=== PATIENT | female | born 1955 | race Caucasian/White ===

== ENCOUNTER 2018-11-01 09:56 | Inpatient (IN) ==
--- NOTE | 2018-10-16 08:21 | History & Physical Report ---
Date of Service October 16, 2018 Date of Surgery: 11-01-18 Assessment & Plan (1) Osteoarthritis of left knee: Risks and benefits of procedure discussed in detail today, patient would like to proceed with a Left total knee replacement @ [facility] with dr alamo on as scheduled. will obtain medical clearance prior to surgery as well as obtain PATs at [facility]. Will place on ASA 81mg po bid x 1 month post op, f/u 2 weeks post op for routine post-operative care and xray, sooner if having any problems. Patients son-in-law is a physical therapist and will work with her postop, he is a PT for [employer] [facility] [place] History of Present Illness Chief Complaint: Left knee pain Primary Care Provider: Horacio Espinosa Ms Hernández is a 62 year old female who is here for a follow up of left knee pain , presents for pre-op evaluation prior to left total knee replacement by dr alamo at [facility] on 11-01-18. She states that the symptoms have been chronic non- traumatic and occur intermittently. Currently the patient states that the symptoms are moderate-severe. The pain is described as discomforting and sharp. The symptoms occur intermittently. The patient is experiencing pain most of her pain over her lateral compartment and anterior knee joint. She rates her worst pain as 8/10, currently 5/10. The symptoms are aggravated by ascending stairs, descending stairs, daily activities, sleeping on the affected side, walking and weight bearing. Ofelia states that the symptoms are relieved by no specific activity. In addition to left knee pain the patient is also experiencing weakness. Pertinent negatives include fever and erythema. Prior NSAIDs include ibuprofen. Patient has had viscosupplementation injections with no relief, most recently underwent Supartz series of 3 in the fall. Allergies Allergy/AdvReac Type Severity Reaction Status Date / Time codeine Allergy Rash Verified 10/13/18 10:12 gentamicin Allergy Verified 10/13/18 10:38 Penicillins Allergy Rash Verified 10/13/18 10:12 Home Medications Home Medications Medication Instructions Recorded Confirmed Type amitriptyline 20 mg PO HS 10/13/18 10/13/18 History calcium carbonate [Calcium 600] 600 mg PO QAM 10/13/18 10/13/18 History clonazepam [Klonopin] 0.5 mg PO HS 10/13/18 10/13/18 History fluticasone [Flovent HFA] 2 puff INHALATION BID 10/13/18 10/13/18 History ibandronate [Boniva] 1 dose PO MONTHLY 10/13/18 10/13/18 History mepolizumab [Nucala] 1 dose SUBCUT MONTHLY 10/13/18 10/13/18 History potassium chloride 20 meq PO BID 10/13/18 10/13/18 History riboflavin (vitamin B2) 100 mg PO QAM 10/13/18 10/13/18 History zafirlukast [Accolate] 20 mg PO Q12H 10/13/18 10/13/18 History Past Med/Surg History Medical History Asthma HAS NOT USED PRN INH SINCE BEGINNING NUCALA INJECTION (BEGAN 1.5 YEARS AGO) Atrial fibrillation S/P SUCCESSFUL ABLATION 2010 - [facility] - RELEASED FROM CARDIO Downs esophagus Chronic obstructive pulmonary disease Fusion of lumbar spine Gentamicin ototoxicity Hearing deficit Hx of intestinal obstruction IBS (irritable bowel syndrome) Migraine Osteoarthritis Ovarian cyst Premature osteoporosis Spinal stenosis Tinnitus Surgical History H/O sinus surgery History of anesthesia reaction SLOW TO WAKE History of appendectomy History of bowel resection History of bronchoscopy History of bunionectomy History of cholecystectomy History of colonoscopy History of esophagogastroduodenoscopy (EGD) History of fundoplication History of partial hysterectomy History of tonsillectomy History of tooth extraction Hx of LASIK Nausea and vomiting after administration of anesthetic agent S/p bilateral myringotomy with tube placement Family History Mother Family history of reaction to anesthesia PONV Father Family history of diabetes mellitus Social History Current Living Situation: Spouse Other Information That Helps Us Care for You: No Feels Safe at Home: Yes Safety Concerns: Feels Safe At This Time Smoking Status: Never smoker Do You Dip or Chew Tobacco: No Second Hand Exposure: No Hx Alcohol Use: No Hx Substance Use: No Beliefs That Will Affect Care: Rastafarian Rastafarian Beliefs: QUAKER Preferred Language: Kazakh Communication Ability: Effective Loading Shovel Oiler Required: No Review of Systems All systems reviewed & are unremarkable except as noted in HPI & below Constitutional: no fever, no chills and no sweats Respiratory: no cough, no dyspnea and no hemoptysis Cardiovascular: no chest pain, no dyspnea and no orthopnea Musculoskeletal: as per Subjective / HPI Integumentary: no rash Endocrine: no fatigue Hematologic / Lymphatic: no easy bleeding and no easy bruising Physical Exam 2 Vital Signs (Past 24 Hours): Ht: 5ft 6in Wt: 59.9Kg BP: 112/74 Pulse: 90 O2%: 94% Constitutional: WD/WN, vitals as above no acute distress Respiratory: normal respiratory effort, lungs clear to auscultation no respiratory distress, no labored breathing and does not use accessory muscles Cardiovascular: RRR, no murmur, no edema Heart Sounds: no murmur Gastrointestinal (Abdomen): normal bowel sounds, soft, nontender, no hepatosplenomegaly Percussion/Palpation: abdomen nontender and no guarding Musculoskeletal: Left Knee Physical Exam Ofelia ambulates with a limp, overall presents with neutral alignment, there is no erythema warmth or ecchymosis noted. +2 effusion, diffuse tenderness to the knee which is greatest over her lateral compartment. negative patellar apprehension, mild crepitation with motion. Her knee is ligamentously stable, rangel/anterior and posterior drawer testing negative, knee stable with valgus and varus stress. good quad tone, straight leg raise without lag. exhibits pain with end range active ROM, active ROM 0/3/115, passive ROM 0/3/120. Lower Extremity Strength normal. Lower Extremity Neuro-vascular is normal Skin: no rashes, warm and dry no rashes Results & Data Diagnostic Findings 4 views of her left knee including AP, flexion, lateral and sunrise showing complete loss of lateral compartment with bone on bone changes, including subchondral sclerosis and osteophyte formation. mild narrowing of her patellofemoral joint, no acute bony pathology noted, no loose bodies.
--- NOTE | 2018-10-16 09:36 | PAT Medication Instructions ---
Medication Instructions Date of Service October 16, 2018 Home Medications amitriptyline 20 mg PO HS calcium carbonate [Calcium 600] 600 mg PO QAM clonazepam [Klonopin] 0.5 mg PO HS fluticasone [Flovent HFA] 2 puff INHALATION BID ibandronate [Boniva] 1 dose PO MONTHLY mepolizumab [Nucala] 1 dose SUBCUT MONTHLY potassium chloride 20 meq PO BID riboflavin (vitamin B2) 100 mg PO QAM zafirlukast [Accolate] 20 mg PO Q12H Continue as directed ibandronate [Boniva] 1 dose PO MONTHLY mepolizumab [Nucala] 1 dose SUBCUT MONTHLY DO NOT take the morning of surgery calcium carbonate [Calcium 600] 600 mg PO QAM potassium chloride 20 meq PO BID riboflavin (vitamin B2) 100 mg PO QAM zafirlukast [Accolate] 20 mg PO Q12H Take morning of surgery OTHERWISE NOTHING TO EAT OR DRINK AFTER MIDNIGHT: fluticasone [Flovent HFA] 2 puff INHALATION BID Take evening before surgery amitriptyline 20 mg PO HS clonazepam [Klonopin] 0.5 mg PO HS fluticasone [Flovent HFA] 2 puff INHALATION BID potassium chloride 20 meq PO BID zafirlukast [Accolate] 20 mg PO Q12H Other Notes If you have any questions please call us at [phone] or [phone] or [phone] or [phone]
--- NOTE | 2018-10-16 10:28 | Anesthesiology Consultation ---
Date of Service October 16, 2018 Assessment & Plan (1) Encounter for pre-operative examination: Plan: PCP CLEARANCE 10/18: "Pt cleared for L knee surgery." Chart Review Chart Review: Acceptable Risk for Surgery and Patient seen in Pre Admission Testing Teaching & Discussion Instructed NPO after midnight before surgery, except medications with 15 cc of water. Medication instructions provided according to the PAT guidelines. History Surgery Operation Date: 11/01/18 10:20 Proposed Procedures p Left Total Knee Arthroplasty - Keith Thomas DO Height/Weight Height: 5 ft 6 in Weight: 61.4 kg Allergies Allergy/AdvReac Type Severity Reaction Status Date / Time codeine Allergy Rash Verified 10/13/18 10:12 gentamicin Allergy Verified 10/13/18 10:38 Penicillins Allergy Rash Verified 10/13/18 10:12 Medications Home Medications Medication Instructions Recorded Confirmed Last Taken amitriptyline 20 mg PO HS 10/13/18 10/13/18 Unknown calcium carbonate [Calcium 600] 600 mg PO QAM 10/13/18 10/13/18 Unknown clonazepam [Klonopin] 0.5 mg PO HS 10/13/18 10/13/18 Unknown fluticasone [Flovent HFA] 2 puff INHALATION BID 10/13/18 10/13/18 Unknown ibandronate [Boniva] 1 dose PO MONTHLY 10/13/18 10/13/18 Unknown mepolizumab [Nucala] 1 dose SUBCUT MONTHLY 10/13/18 10/13/18 Unknown potassium chloride 20 meq PO BID 10/13/18 10/13/18 Unknown riboflavin (vitamin B2) 100 mg PO QAM 10/13/18 10/13/18 Unknown zafirlukast [Accolate] 20 mg PO Q12H 10/13/18 10/13/18 Unknown Past Medical History Medical History Asthma HAS NOT USED PRN INH SINCE BEGINNING NUCALA INJECTION (1.5 YEARS AGO) Atrial fibrillation S/P SUCCESSFUL ABLATION 2010 - [facility] - RELEASED FROM CARDIO Downs esophagus Chronic obstructive pulmonary disease Gentamicin ototoxicity Hearing deficit Hx of intestinal obstruction IBS (irritable bowel syndrome) Migraine Osteoarthritis Ovarian cyst Premature osteoporosis Spinal stenosis Tinnitus Past Family History Family History Mother Family history of reaction to anesthesia PONV Father Family history of diabetes mellitus Past Surgical History Surgical History Fusion of lumbar spine H/O sinus surgery History of appendectomy History of bowel resection History of bronchoscopy History of bunionectomy History of cholecystectomy History of colonoscopy History of esophagogastroduodenoscopy (EGD) History of fundoplication History of partial hysterectomy History of tonsillectomy History of tooth extraction Hx of LASIK Nausea and vomiting after administration of anesthetic agent S/p bilateral myringotomy with tube placement Past Anesthesia History No Hx of Anesthesia Complications (OTHER THAN PONV) and No Family Hx of Anesthesia Complications History of PONV Yes Motion Sickness Screening History of Motion Sickness: Yes Social History Smoking Status: Never smoker Do You Dip or Chew Tobacco: No Hx Alcohol Use: No Hx Substance Use: No substance use type: does not use Exercise / Class Metabolic Activity II 4-5 Yardwork/Stairs/Walk up hill (no CP or SOB with stairs) Review of Systems Pt denies any recent chest pain, shortness of breath, palpitations, cough, fever or URI. Physical Exam Vital Signs BP: 132/81 (pt reports this is high for her) P: 81bpm SPO2: 98% RA T: 97.6 F R: 12 ENMT Mouth: + dental restorations (2 crowns); no chipped teeth and no loose teeth Thyromental Distance: > or= 3.5 Finger Breadths (4) Mallampati Class: I Neck normal visual inspection; neck extension not limited Respiratory normal respiratory effort Auscultation: + diminished lung sounds (L lower lung field), + crackles (mild inspiratory R lung base) and + bronchovesicular breath sounds (B/L); no rhonchi and no wheezes Cardiovascular Rate/Rhythm: regular rate and regular rhythm Heart Sounds: no murmur Vessels: no carotid bruit Extremities: no edema Testing Electrocardiogram Date: 10/16/18 Findings: + NSR @ (75) Chest X-Ray Date: 10/16/18 Findings: + NAD Laboratory Results 10/16/18 10:56 10/16/18 10:56 Blood Type O Positive 10/16/18 10:56 Antibody Screen NEGATIVE 10/16/18 10:56 PT 9.9 Seconds (9.0-12.0) 10/16/18 10:56 INR 1.0 (0.9-1.1) 10/16/18 10:56 APTT 25.1 Seconds (21.0-31.0) 10/16/18 10:56 Hemoglobin A1c 5.8 % (4.5-5.6) H 10/16/18 10:56 Urine Color Yellow 10/16/18 Unknown Urine Appearance Clear (Clear) 10/16/18 Unknown Urine pH 8.5 (4.5-7.5) H 10/16/18 Unknown Ur Specific [place] 1.013 (1.000-1.030) 10/16/18 Unknown Urine Protein Negative (Negative) 10/16/18 Unknown Urine Glucose (UA) Negative (Negative) 10/16/18 Unknown Urine Ketones Negative (Negative) 10/16/18 Unknown Urine Nitrite Negative (Negative) 10/16/18 Unknown Ur Leukocyte Esterase Trace (Negative) H 10/16/18 Unknown Urine WBC (Auto) 1-5 /hpf (0-5) 10/16/18 Unknown Urine RBC (Auto) 0-4 /hpf (0-4) 10/16/18 Unknown U Hyaline Cast (Auto) 1-5 /lpf (0-5) 10/16/18 Unknown U Epithel Cells (Auto) >30 /lpf (0-5) H 10/16/18 Unknown Urine Bacteria (Auto) Negative (Negative) 10/16/18 Unknown
[2018-10-16 11:35] LABS: Basophils # (auto) 0.01 K/uL (0-0.2); Basophils % (auto) 0.2 %; Eosinophils # (auto) 0.09 K/uL (0-0.5); Eosinophils % (auto) 1.6 %; Hematocrit (blood only) 40.2 % (37-47); Hemoglobin 13.1 g/dL (12.0-16.0); Immature Granulocytes # (auto) 0.02 K/uL (0.00-0.02); Immature Granulocytes % (auto) 0.4 %; Lymphocytes % (auto) 25.2 %; Mean Corpuscular Hgb Conc 32.6 g/dL (32-36); Mean Corpuscular Volume 97.3 fL (80-100); Mean Platelet Volume 9.3 fL (7.4-10.4); Monocytes # (auto) 0.65 K/uL (0.11-0.59); Monocytes % (auto) 11.7 %; Neutrophils # (auto) 3.38 K/uL (1.4-6.5); Neutrophils % (auto) 60.9 %; Platelet Count 295 K/uL (130-400); RDW Coefficient of Variation 13.2 % (11.5-14.5); RDW Standard Deviation 46.5 fL (36.4-46.3); Red Blood Count 4.13 M/uL (4.2-5.4); White Blood Count 5.55 K/uL (4.8-10.8)
[2018-10-16 11:40] LABS: Appearance Urine Clear (Clear); Bacteria Urine Automated Negative (Negative); Bilirubin Urine Negative (Negative); Color Urine Yellow; Epithelial Cell Urine Auto >30 /lpf (0-5); Glucose Urine UA Negative (Negative); Ketones Urine Negative (Negative); Leukocyte Esterase Urine Trace (Negative); Nitrite Urine Negative (Negative); Protein Urine Negative (Negative); Specific Gravity Urine 1.013 (1.000-1.030); Urobilinogen Urine Negative (Negative); pH Urine 8.5 (4.5-7.5)
--- NOTE | 2018-10-16 11:41 | XRay Report ---
XR chest Pre-admission PA/Lat CLINICAL HISTORY: 62 years-old Female presenting with preoperative assessment. TECHNIQUE: PA and lateral views of the chest were obtained. COMPARISON: None. FINDINGS: Cardiomediastinal silhouette normal. Lungs and pleural spaces clear. Incidental note made of an azygo s fissure. Partially visualized lumbar fusion hardware. Cholecystectomy clips noted. IMPRESSION: 1. No acute cardiopulmonary disease. Electronically signed by: Alfred Gibson M.D. 10/16/2018 11:40 AM
[2018-10-16 11:43] LABS: Partial Thromboplastin Time 25.1 Seconds (21.0-31.0); Prothrombin Time 9.9 Seconds (9.0-12.0)
[2018-10-16 11:44] LABS: Albumin Level 3.5 gm/dl (3.4-5.0); BUN Creatinine Ratio 32.6 (10-20); Calcium 9.1 mg/dl (8.5-10.1); Creatinine Clr Calc Pharmacy 96.7 ml/min; Est GFR (African American) 114.9; Est GFR (Non-African American) 99.1; Potassium 4.4 mmol/L (3.5-5.1)
[2018-10-16 11:46] LABS: Estimated Average Glucose 120 mg/dl
[~2018-11-01 09:56] MED LIST: ACETAMINOPHEN 500 MG TAB PO SCH; BUPIVACAINE 0.5 % 5 MG/1 ML PF 10ML VIAL ONE; CEFAZOLIN 1000MG 1,000 MG/7.5 ML SYR IV SCH; CLINDAMYCIN 600 MG/54 ML BAG IV SCH; CeleBREX 200 MG CAP PO SCH; FAMOTIDINE 20 MG TAB PO SCH; GABAPENTIN 300 MG PO SCH; LR 15ML/HR IV SCH; LR 500ML BOLUS IV SCH; METOCLOPRAMIDE HCL 10 MG TABLET PO SCH; MIDAZOLAM HCL 1 MG/ML 2ML VIAL ONE; ROPIVACAINE 0.5% 5 MG/ML 30 ML VIAL ONE; ROPIVACAINE 0.5% HCL/PF 150 MG, BUPIVACAINE 0.5% MPF 30 ML, EPINEPHrine 30MG/30ML (OR U... INFIL SCH; TRANEXAMIC ACID 1,000 MG **IV Intra-op IV SCH; TRANEXAMIC ACID 1,000 MG **IV Pre-op IV SCH; dexAMETHasone 4 MG TAB PO SCH; fentaNYL citrate 100 MCG/2 ML VIAL ONE
--- NOTE | 2018-11-01 10:49 | History & Physical Bridge Note ---
Date of Service November 01, 2018 History & Physical Bridge Note I have examined the patient, reviewed the History & Physical and in the interval since the performance of the History & Physical I have noted the following changes of clinical significance: no changes noted
[2018-11-01] MEDS ORDERED: POVIDONE-IODINE OP SOLN 30 ML BTL ONE (11:17)
[2018-11-01] MEDS ORDERED: ORTHO JOINT ANESTHETIC ONE (11:17)
[2018-11-01] MEDS ORDERED: BACITRACIN INJ 50,000 UNIT VIAL ONE (11:17)
[2018-11-01] MEDS ORDERED: ePHEDrine sulfate 50 MG/ML AMP IV PRN (11:59)
[2018-11-01] MEDS ORDERED: ONDANSETRON INJ 2 MG/ML 2 ML VIAL IV PRN ×2 (11:59→15:40)
[2018-11-01] MEDS ORDERED: ATROPINE SULFATE 0.1 MG/ML 10ML SYR IV PRN (11:59)
[2018-11-01] MEDS ORDERED: fentaNYL citrate 100 MCG/2 ML VIAL IV PRN (11:59)
[2018-11-01] MEDS ORDERED: LIDOCAINE HCL 2% 2 ML VIAL/AMP(20MG/ML) INFIL ONE (12:58)
[2018-11-01] MEDS ORDERED: PROPOFOL IV EMULSION 10 MG/ML 20 ML VIAL IV ONE (12:58)
--- NOTE | 2018-11-01 13:27 | Operative Report ---
Post Operative Report Pre & Post Diagnosis Operation Date: 11/01/18 12:20 Pre-Op Diagnosis: Left Knee Osteoarthritis Post-Op Diagnosis: Left Knee Osteoarthritis Procedure Operation Date: 11/01/18 12:20 Actual Procedures p Left Total Knee Arthroplasty, Cemented(Left) utilizing journey 2 long block total knee arthroplasty size 5 femur 4 tibia 11 polyethylene 29 oval patella- Keith Thomas DO Surgeon Keith Thomas DO Process Development Manager [place] Estimated Blood Loss 5 Findings Consistent with Post-Op Diagnosis Patient presents with severe end-stage chronic hormonal degenerative joint disease with valgus alignment of approximately 12 degrees left knee she is failed attempts at conservative management times surgery no evidence of osteophytes marginal osteophytes with subchondral sclerosis cystic changes and eburnated [id number] change with a valgus alignment with hyperextension of 5 degrees Specimens Bone and cartilage Drains Medium bore Hemovac Complications none Disposition Accompanied Patient To Recovery: No Disposition: Recovery Room Indications Patient presents for left total knee arthroplasty after failed attempts at conservative management including injections corticosteroid injections Visco supplementation relative rest activity modification bracing she had the above intraoperative findings noted times surgery. Description of Procedure After proper prepping and draping of the left lower extremity anterior midline incision was made over the region of the extensor extensor mechanism after meticulous hemostasis was obtained and maintained in subcutaneous tissues a medial parapatellar incision was made The patella was subluxed lateralward the medial lateral gutter were cleaned from any hypertrophic synovitis and scar tissue of the distal femoral block was placed and the distal femoral osteotomy cut was made subsequently the chamfers anterior and posterior osteotomy cuts were made utilizing the 4-in-1 block the tibia was subsequently subluxed anteriorward medial and ateral meniscal remnants were excised in their entirety remnants of the anterior and posterior cruciate ligaments were excised in their entirety excellent exposure of the proximal tibia was obtained the tibial osteotomy guide was placed on the proximal tibial osteotomy cut was made once again the knee was irrigated with copious amounts of sterile saline solution the patella was subsequently everted lateralward thickened scar tissue around the patella was removed the patella was subsequently cut utilizing a freehand technique and was drilled prepared for final preparation and placement of patella socially flexion-extension gaps were checked and the equal and symmetric trials were placed to the appropriate femoral and tibial trials with poly-spacer being placed for equal flexion and extension gaps and full range of motion including extension to 0 and flexion to 140� the trial components after having been taken to recovery range of motion was subsequently removed meticulous hemostasis was obtained and maintained subsequently a knee block injection of joint cocktail including ropivacaine 0.5% 150 mg. Bupivacaine 0.5 % epinephrine 1-200,030 mL's toradol 30 mg dexamethasone 4 mg ketamine 10 mg clonidine 100 micrograms normal saline solution 30 mg was infiltrated into the soft tissues of the posterior knee medial lateral gutters and periosteal synovium special attention was paid to protect neurovascular structures at all times subsequently trial components having been removed the knee was irrigated with sterile saline solution. debris was removed the proximal tibia was subsequently prepared and was made ready for the placement of the tibial component tibial component was also cemented and tamped into position the femoral component was subsequently placed and cemented in the position the patellar component was subsequently cemented in position because hemostasis once again obtained and maintained wound having been thoroughly irrigated with debridement and debridement lavage was performed as well as a medial parapatellar incision closed with #1 Vicryl in interrupted fashion subcutaneous was closed with #2 Vicryl skin was closed with skin clips. PA-C was necessary for prepping and drapping as well as wound closure of deep fascia Sub cutaneous tissue and skin and was necessary for the case. A sterile compressive dressing was placed patient was taken to recovery in stable condition of report dictated by William I attest to the content of the Intraoperative Record and any orders documented therein. Any exceptions are noted below. I attest to the content of the Intraoperative Record and any orders documented therein. Any exceptions are noted below.
--- NOTE | 2018-11-01 14:21 | XRay Report ---
XR knee LT 2V routine HISTORY: 62 years-old Female Surgical Post Op left knee total joint arthroplasty. History of degener ative joint disease COMPARISON: Left knee radiographs 10/02/2018 TECHNIQUE: 2 views of the left knee FINDINGS: Left knee total joint arthroplasty with patellar resurfacing. Satisfactory alignment without acute fr acture or retained foreign body. Anterior midline skin marilou are noted along with expected postsurg ical soft tissue swelling and deep tissue air with surgical drainage catheter. IMPRESSION: Left knee total joint arthroplasty and patella resurfacing with satisfactory alignment. The above report was generated using voice recognition software. It may contain grammatical, syntax o r spelling errors. Electronically signed by: Tashi Dorsey M.D. 11/01/2018 2:20 PM
--- NOTE | 2018-11-01 15:06 | Anesthesiology Progress Note ---
Date of Service November 01, 2018 Anesthesia Post Procedure Vital Signs Vital Signs: Temp Pulse Pulse Resp BP Pulse Ox 11/01/18 14:55 66 18 120/73 99 11/01/18 14:45 61 18 135/72 99 11/01/18 14:35 37.0 C 63 18 134/72 100 11/01/18 14:25 71 17 137/72 98 11/01/18 14:15 70 16 129/69 98 11/01/18 14:05 36.3 C L 73 17 128/68 97 11/01/18 10:51 36.9 C 80 20 158/79 H 97 Pain Intensity Left Knee: Pain Intensity: 0 Notes Mental Status: alert / awake / arousable and participated in evaluation Patient Amnestic to Procedure: Yes Nausea / Vomiting: adequately controlled Pain: adequately controlled Airway Patency, RR, SpO2: stable & adequate BP & HR: stable & adequate Hydration State: stable & adequate Neuraxial Anesthesia: was administered and sensory block is resolving Anesthetic Complications: no major complications apparent and Pt Satisfied with anesthetic care
[2018-11-01] MEDS ORDERED: MAGNESIUM HYDROXIDE SUSP 30 ML UDC PO PRN (15:40)
[2018-11-01] MEDS ORDERED: BISACODYL 10 MG SUPP PR PRN (15:40)
[2018-11-01] MEDS ORDERED: HYDROmorphone INJ 0.5 MG/0.5 ML SYR IV PRN (15:40)
[2018-11-01] MEDS ORDERED: METOCLOPRAMIDE HCL INJ 5 MG/ML 2 ML VIAL IV PRN (15:40)
[2018-11-01] MEDS ORDERED: NALOXONE HCL 0.4 MG/1 ML VIAL/CARP IV PRN (15:40)
[2018-11-01] MEDS ORDERED: SODIUM CHLORIDE 0.9% 1000ML 1,000 ML IV SCH (16:15)
[2018-11-01] MEDS: FERROUS GLUCONATE 324 MG TAB PO SCH (17:17)
[2018-11-01] MEDS: DOCUSATE SODIUM 100 MG CAP PO SCH (20:15)
[2018-11-01] MEDS: CLINDAMYCIN 600 MG in DEXTROSE 5% 50 ML IV SCH (20:15)
[2018-11-01] MEDS: POTASSIUM CHLORIDE 20 MEQ TABCR PO SCH (20:16)
[2018-11-01] MEDS: SENNA 8.6 MG TAB PO SCH (20:16)
[2018-11-01] MEDS: FLUTICASONE HFA 220 MCG INHALER INH SCH (20:16)
[2018-11-01] MEDS: ASPIRIN 81 MG ECTAB PO SCH (20:17)
[2018-11-01] MEDS: AMITRIPTYLINE HCL 10 MG TAB PO SCH (20:17)
[2018-11-01] MEDS: clonazePAM 0.5 MG TAB PO SCH (20:37)
[2018-11-01] MEDS: ACETAMINOPHEN 500 MG TAB PO SCH (22:29)
[2018-11-02] MEDS: CLINDAMYCIN 600 MG in DEXTROSE 5% 50 ML IV SCH (03:52)
[2018-11-02] MEDS: OXYCODONE HCL IR 5 MG TAB (IMMEDIATE RELEASE) PO PRN ×4 (03:53→20:44)
[2018-11-02] MEDS: ACETAMINOPHEN 500 MG TAB PO SCH ×3 (05:54→23:00)
[2018-11-02 05:56] LABS: Hematocrit (blood only) 35.1 % (37-47); Hemoglobin 11.6 g/dL (12.0-16.0); Mean Corpuscular Volume 95.9 fL (80-100); Mean Platelet Volume 9.2 fL (7.4-10.4); Platelet Count 239 K/uL (130-400); RDW Coefficient of Variation 13.2 % (11.5-14.5); Red Blood Count 3.66 M/uL (4.2-5.4)
[2018-11-02 06:29] LABS: BUN Creatinine Ratio 30.9 (10-20); Calcium 8.4 mg/dl (8.5-10.1); Creatinine Clr Calc Pharmacy 78.2 ml/min; Est GFR (African American) 107.1; Est GFR (Non-African American) 92.4; Potassium 3.9 mmol/L (3.5-5.1)
--- NOTE | 2018-11-02 07:09 | Orthopedic Progress Note ---
Date of Service November 02, 2018 Assessment & Plan (1) Status post total left knee replacement: POD #1 s/p Left TKA pt/ot dvt proph with MARIA LUISA/SCD/ASA plan for d/c home with home health PT with her neighbor is PT and family member, likely on Tuesday. Subjective POD #1 s/p Left TKA Constitutional: no fever, no chills, no sweats and no body aches Respiratory: no cough and no dyspnea Cardiovascular: no chest pain, no dyspnea and no orthopnea Physical Exam 2 Vital Signs (Past 24 Hours): Last Vital Signs Temp 36.6 C 11/02/18 03:12 Pulse 73 11/02/18 03:12 Resp 16 11/02/18 03:12 BP 110/70 11/02/18 03:12 Pulse Ox 94 11/02/18 03:12 Constitutional: WD/WN, vitals as above no acute distress Musculoskeletal: NVDI, able to wiggle toes, ankle up and down no pain, negative mane. dressing CD&I Results & Data Laboratory Results Laboratory Results WBC 15.80 K/uL (4.8-10.8) H 11/02/18 05:28 RBC 3.66 M/uL (4.2-5.4) L 11/02/18 05:28 Hgb 11.6 g/dL (12.0-16.0) L 11/02/18 05:28 Hct 35.1 % (37-47) L 11/02/18 05:28 MCV 95.9 fL (80-100) 11/02/18 05:28 MCH 31.7 pg (25-34) 11/02/18 05:28 MCHC 33.0 g/dL (32-36) 11/02/18 05:28 RDW Std Deviation 46.0 fL (36.4-46.3) 11/02/18 05:28 RDW Coeff of Nalini 13.2 % (11.5-14.5) 11/02/18 05:28 Plt Count 239 K/uL (130-400) 11/02/18 05:28 MPV 9.2 fL (7.4-10.4) 11/02/18 05:28 Immature Gran % (Auto) 0.4 % 10/16/18 10:56 Neut % (Auto) 60.9 % 10/16/18 10:56 Lymph % (Auto) 25.2 % 10/16/18 10:56 Sully % (Auto) 11.7 % 10/16/18 10:56 Eos % (Auto) 1.6 % 10/16/18 10:56 Baso % (Auto) 0.2 % 10/16/18 10:56 Immature Gran # (Auto) 0.02 K/uL (0.00-0.02) 10/16/18 10:56 Neut # (Auto) 3.38 K/uL (1.4-6.5) 10/16/18 10:56 Lymph # (Auto) 1.40 K/uL (1.2-3.4) 10/16/18 10:56 Sully # (Auto) 0.65 K/uL (0.11-0.59) H 10/16/18 10:56 Eos # (Auto) 0.09 K/uL (0-0.5) 10/16/18 10:56 Baso # (Auto) 0.01 K/uL (0-0.2) 10/16/18 10:56 PT 9.9 Seconds (9.0-12.0) 10/16/18 10:56 INR 1.0 (0.9-1.1) 10/16/18 10:56 APTT 25.1 Seconds (21.0-31.0) 10/16/18 10:56 PTT Ratio 1.0 10/16/18 10:56 Sodium 140 mmol/L (136-145) 11/02/18 05:28 Potassium 3.9 mmol/L (3.5-5.1) 11/02/18 05:28 Chloride 109 mmol/L (98-107) H 11/02/18 05:28 Carbon Dioxide 25 mmol/L (21-32) 11/02/18 05:28 Anion Gap 6.0 (3-11) 11/02/18 05:28 BUN 21 mg/dl (7-18) H 11/02/18 05:28 Creatinine 0.68 mg/dl (0.6-1.2) 11/02/18 05:28 Est Cr Clr Drug Dosing 78.2 ml/min 11/02/18 05:28 Est GFR ( Amer) 107.1 11/02/18 05:28 Est GFR (Non-Af Amer) 92.4 11/02/18 05:28 BUN/Creatinine Ratio 30.9 (10-20) H 11/02/18 05:28 Glucose 152 mg/dl (70-99) H 11/02/18 05:28 Estimat Average Glucose 120 mg/dl 10/16/18 10:56 Hemoglobin A1c 5.8 % (4.5-5.6) H 10/16/18 10:56 Calcium 8.4 mg/dl (8.5-10.1) L 11/02/18 05:28 Albumin 3.5 gm/dl (3.4-5.0) 10/16/18 10:56 Urine Color Yellow 10/16/18 Unknown Urine Appearance Clear (Clear) 10/16/18 Unknown Urine pH 8.5 (4.5-7.5) H 10/16/18 Unknown Ur Specific [place] 1.013 (1.000-1.030) 10/16/18 Unknown Urine Protein Negative (Negative) 10/16/18 Unknown Urine Glucose (UA) Negative (Negative) 10/16/18 Unknown Urine Ketones Negative (Negative) 10/16/18 Unknown Urine Blood Negative (Negative) 10/16/18 Unknown Urine Nitrite Negative (Negative) 10/16/18 Unknown Urine Bilirubin Negative (Negative) 10/16/18 Unknown Urine Urobilinogen Negative (Negative) 10/16/18 Unknown Ur Leukocyte Esterase Trace (Negative) H 10/16/18 Unknown Urine WBC (Auto) 1-5 /hpf (0-5) 10/16/18 Unknown Urine RBC (Auto) 0-4 /hpf (0-4) 10/16/18 Unknown U Hyaline Cast (Auto) 1-5 /lpf (0-5) 10/16/18 Unknown U Epithel Cells (Auto) >30 /lpf (0-5) H 10/16/18 Unknown Urine Bacteria (Auto) Negative (Negative) 10/16/18 Unknown Hepatitis C Ab Screen Neg (Neg) 11/01/18 10:24 Blood Type O Positive 10/16/18 10:56 Antibody Screen NEGATIVE 10/16/18 10:56 Vital Signs Temp 36.6 C 11/02/18 03:12 Pulse 73 11/02/18 03:12 Resp 16 11/02/18 03:12 BP 110/70 11/02/18 03:12 Pulse Ox 94 11/02/18 03:12 Intake & Output 11/01/18 11/02/18 11/02/18 18:59 06:59 18:59 Intake Total 2162.833 / 2162.833 358 / 358 Output Total 35 / 35 800 / 800 Balance 2127.833 / 2127.833 -442 / -442 Weight 61.235 kg Intake: IV 1312.833 / 1312.833 108 / 108 Cleocin 600 mg In D5w 50 ml @ 108 / 108 100 mls/hr IV Q8H ZACHARIAH Rx#: [id number] CLEOCIN 600 mg In 54 ml @ 100 53.333 / 53.333 mls/hr IV PREOP ZACHARIAH Rx#: [id number] Lr 1,000 ml @ 15 mls/hr IV . 1149.5 / 1149.5 Q24H ZACHARIAH Rx#:[id number] Cyklokapron 1,000 mg In Sodium 110 / 110 Chloride 100 ml @ 660 mls/hr IV TODAY@0600 ZACHARIAH Rx#:[id number] IV Perioperative 850 / 850 Oral 250 / 250 Output: Urine 550 / 550 Estimated Blood Loss 5 / 5 Drain Output 30 / 30 250 / 250 Left Knee 30 / 30 250 / 250
[2018-11-02] MEDS ORDERED: KETOROLAC TROMETHAMINE 15 MG/ML VIAL IV STA (07:16)
[2018-11-02] MEDS ORDERED: RIBOFLAVIN 100 MG PO SCH (09:00)
[2018-11-02] MEDS: POTASSIUM CHLORIDE 20 MEQ TABCR PO SCH ×2 (09:31→19:59)
[2018-11-02] MEDS: DOCUSATE SODIUM 100 MG CAP PO SCH ×2 (09:31→19:58)
[2018-11-02] MEDS: ASPIRIN 81 MG ECTAB PO SCH ×2 (09:31→19:59)
[2018-11-02] MEDS: MULTIVITAMIN TAB PO SCH (09:31)
[2018-11-02] MEDS: FERROUS GLUCONATE 324 MG TAB PO SCH ×2 (09:32→18:30)
[2018-11-02] MEDS: CALCIUM 600MG + VIT D 400 IU TAB PO SCH (09:32)
[2018-11-02] MEDS: FLUTICASONE HFA 220 MCG INHALER INH SCH ×2 (09:32→19:57)
[2018-11-02] MEDS: ZAFIRLUKAST 20 MG SCH ×2 (11:54→20:00)
[2018-11-02] MEDS: MoRPHine SULFATE 4 MG/ML 1 ML CARP\\VIAL IV PRN ×2 (14:18→23:10)
[2018-11-02] MEDS: AMITRIPTYLINE HCL 10 MG TAB PO SCH (19:59)
[2018-11-02] MEDS: SENNA 8.6 MG TAB PO SCH (20:00)
[2018-11-02] MEDS: clonazePAM 0.5 MG TAB PO SCH (20:44)
[2018-11-03] MEDS: OXYCODONE HCL IR 5 MG TAB (IMMEDIATE RELEASE) PO PRN ×3 (02:46→11:31)
[2018-11-03] MEDS: ACETAMINOPHEN 500 MG TAB PO SCH (05:59)
--- NOTE | 2018-11-03 06:51 | Orthopedic Progress Note ---
Date of Service November 03, 2018 Assessment & Plan (1) Status post total left knee replacement: POD #2 s/p Left TKA pt/ot dvt proph with MARIA LUISA/SCD/ASA plan for d/c home with home health PT, her neighbor is her RADHA and is PT, will do in home for 2 weeks then transition to OPPT Subjective POD #2 s/p Left TKA Constitutional: no fever, no chills and no sweats Respiratory: no cough and no dyspnea Cardiovascular: no chest pain Gastrointestinal: no nausea and no vomiting Musculoskeletal: as per Subjective / HPI Physical Exam 2 Vital Signs (Past 24 Hours): Last Vital Signs Temp 37.0 C 11/02/18 23:02 Pulse 89 11/02/18 23:02 Resp 16 11/02/18 23:02 BP 121/78 11/02/18 23:02 Pulse Ox 98 11/02/18 23:02 Constitutional: WD/WN, vitals as above no acute distress Musculoskeletal: NVDI, calf SNT, negative mane sign. DP palpable, able to wiggle toes/ankle movement without difficulty. silverlon dressing clean dry and intact. expected post-operative bruising noted. Results & Data Laboratory Results Laboratory Results WBC 15.80 K/uL (4.8-10.8) H 11/02/18 05:28 RBC 3.66 M/uL (4.2-5.4) L 11/02/18 05:28 Hgb 11.6 g/dL (12.0-16.0) L 11/02/18 05:28 Hct 35.1 % (37-47) L 11/02/18 05:28 MCV 95.9 fL (80-100) 11/02/18 05:28 MCH 31.7 pg (25-34) 11/02/18 05:28 MCHC 33.0 g/dL (32-36) 11/02/18 05:28 RDW Std Deviation 46.0 fL (36.4-46.3) 11/02/18 05:28 RDW Coeff of Nalini 13.2 % (11.5-14.5) 11/02/18 05:28 Plt Count 239 K/uL (130-400) 11/02/18 05:28 MPV 9.2 fL (7.4-10.4) 11/02/18 05:28 Immature Gran % (Auto) 0.4 % 10/16/18 10:56 Neut % (Auto) 60.9 % 10/16/18 10:56 Lymph % (Auto) 25.2 % 10/16/18 10:56 Villalba % (Auto) 11.7 % 10/16/18 10:56 Eos % (Auto) 1.6 % 10/16/18 10:56 Baso % (Auto) 0.2 % 10/16/18 10:56 Immature Gran # (Auto) 0.02 K/uL (0.00-0.02) 10/16/18 10:56 Neut # (Auto) 3.38 K/uL (1.4-6.5) 10/16/18 10:56 Lymph # (Auto) 1.40 K/uL (1.2-3.4) 10/16/18 10:56 Villalba # (Auto) 0.65 K/uL (0.11-0.59) H 10/16/18 10:56 Eos # (Auto) 0.09 K/uL (0-0.5) 10/16/18 10:56 Baso # (Auto) 0.01 K/uL (0-0.2) 10/16/18 10:56 PT 9.9 Seconds (9.0-12.0) 10/16/18 10:56 INR 1.0 (0.9-1.1) 10/16/18 10:56 APTT 25.1 Seconds (21.0-31.0) 10/16/18 10:56 PTT Ratio 1.0 10/16/18 10:56 Sodium 140 mmol/L (136-145) 11/02/18 05:28 Potassium 3.9 mmol/L (3.5-5.1) 11/02/18 05:28 Chloride 109 mmol/L (98-107) H 11/02/18 05:28 Carbon Dioxide 25 mmol/L (21-32) 11/02/18 05:28 Anion Gap 6.0 (3-11) 11/02/18 05:28 BUN 21 mg/dl (7-18) H 11/02/18 05:28 Creatinine 0.68 mg/dl (0.6-1.2) 11/02/18 05:28 Est Cr Clr Drug Dosing 78.2 ml/min 11/02/18 05:28 Est GFR ( Amer) 107.1 11/02/18 05:28 Est GFR (Non-Af Amer) 92.4 11/02/18 05:28 BUN/Creatinine Ratio 30.9 (10-20) H 11/02/18 05:28 Glucose 152 mg/dl (70-99) H 11/02/18 05:28 Estimat Average Glucose 120 mg/dl 10/16/18 10:56 Hemoglobin A1c 5.8 % (4.5-5.6) H 10/16/18 10:56 Calcium 8.4 mg/dl (8.5-10.1) L 11/02/18 05:28 Albumin 3.5 gm/dl (3.4-5.0) 10/16/18 10:56 Urine Color Yellow 10/16/18 Unknown Urine Appearance Clear (Clear) 10/16/18 Unknown Urine pH 8.5 (4.5-7.5) H 10/16/18 Unknown Ur Specific Joseph 1.013 (1.000-1.030) 10/16/18 Unknown Urine Protein Negative (Negative) 10/16/18 Unknown Urine Glucose (UA) Negative (Negative) 10/16/18 Unknown Urine Ketones Negative (Negative) 10/16/18 Unknown Urine Blood Negative (Negative) 10/16/18 Unknown Urine Nitrite Negative (Negative) 10/16/18 Unknown Urine Bilirubin Negative (Negative) 10/16/18 Unknown Urine Urobilinogen Negative (Negative) 10/16/18 Unknown Ur Leukocyte Esterase Trace (Negative) H 10/16/18 Unknown Urine WBC (Auto) 1-5 /hpf (0-5) 10/16/18 Unknown Urine RBC (Auto) 0-4 /hpf (0-4) 10/16/18 Unknown U Hyaline Cast (Auto) 1-5 /lpf (0-5) 10/16/18 Unknown U Epithel Cells (Auto) >30 /lpf (0-5) H 10/16/18 Unknown Urine Bacteria (Auto) Negative (Negative) 10/16/18 Unknown Hepatitis C Ab Screen Neg (Neg) 11/01/18 10:24 Blood Type O Positive 10/16/18 10:56 Antibody Screen NEGATIVE 10/16/18 10:56
[2018-11-03] MEDS: FLUTICASONE HFA 220 MCG INHALER INH SCH (08:59)
[2018-11-03] MEDS: ASPIRIN 81 MG ECTAB PO SCH (09:00)
[2018-11-03] MEDS: MULTIVITAMIN TAB PO SCH (09:00)
[2018-11-03] MEDS ORDERED: CeleBREX 200 MG CAP PO SCH (09:00)
[2018-11-03] MEDS: FERROUS GLUCONATE 324 MG TAB PO SCH (09:00)
[2018-11-03] MEDS: ZAFIRLUKAST 20 MG SCH (09:00)
[2018-11-03] MEDS: CALCIUM 600MG + VIT D 400 IU TAB PO SCH (09:00)
[2018-11-03] MEDS: POTASSIUM CHLORIDE 20 MEQ TABCR PO SCH (09:00)
[2018-11-03] MEDS: DOCUSATE SODIUM 100 MG CAP PO SCH (09:00)
[2018-11-03] MEDS: MoRPHine SULFATE 4 MG/ML 1 ML CARP\\VIAL IV PRN (10:15)
--- NOTE | 2018-11-05 07:51 | Discharge Summary ---
DISCHARGE DIAGNOSIS: Degenerative joint disease, left knee. SECONDARY DIAGNOSES: Asthma, atrial fibrillation, successful ablation, Downs esophagus, chronic obstructive pulmonary disease, fusion of lumbar spine, gentamicin ototoxicity, hearing deficit, irritable bowel syndrome, migraine headaches, osteoarthritis, osteoporosis, spinal stenosis, tinnitus. CONSULTS: None. COMPLICATIONS: None. PROCEDURES: Left total knee arthroplasty performed by Dr. Thomas on 11/01/2018. BRIEF HISTORY: As dictated in the history and physical. HOSPITAL SUMMARY: The patient was admitted on the above-noted date and had the above-noted surgery performed which she tolerated well. On first postoperative day, the patient had no complaints. Pain was controlled and denied chest pain, shortness of breath or nausea and vomiting. Vital signs were stable. She was afebrile. Neurovascular was intact. Toes were mobile. Dressings clean, dry and intact and hemoglobin was 11.6. She was started on physical therapy protocol and continued on DVT prophylaxis and pain management. By her second postoperative day, she was progressing well with her physical therapy. She remained with no complaints. Pain was controlled. Vital signs were stable. Neurovascular was intact. Calves were soft, nontender. Toes were mobile. Silverlon dressing was intact and it was felt she could be discharged to home with home health services. For further review, please see chart. LABORATORY AND X-RAY DATA: As per chart. DISCHARGE INSTRUCTIONS: The patient was discharged to home in satisfactory condition on 11/03/2018. Diet: Regular. Activity: Weightbearing as tolerated, left lower extremity with walker. Follow TK instruction sheets and special care instructions as noted. Follow up with Dr. Thomas in 2 weeks. The patient is to call for appointment if one has not been made for you. DISCHARGE MEDICATIONS: Acetaminophen 1000 mg p.o. q. 8 hours, aspirin 81 mg p.o. b.i.d., Celebrex 200 mg p.o. b.i.d., clindamycin 300 mg p.o. t.i.d., Colace 100 mg p.o. b.i.d., oxycodone 5 mg p.o. q. 6 hours p.r.n. Resume home meds as listed.
--- NOTE | 2018-11-06 07:59 | Discharge Summary ---
DISCHARGE DIAGNOSIS: Degenerative joint disease, left knee. SECONDARY DIAGNOSES: History of asthma, atrial fibrillation with successful ablation, history of Downs esophagus, chronic obstructive pulmonary disease, hearing deficit due to gentamicin noted toxicity, history of intestinal obstruction, irritable bowel syndrome, migraine headaches, osteoarthritis, ovarian cyst, osteoporosis, spinal stenosis, tinnitus. CONSULTATIONS: None. COMPLICATIONS: None. PROCEDURES: Left total knee arthroplasty performed by Dr. Thomas on 11/01/2018. BRIEF HISTORY: As dictated in history and physical. HOSPITAL SUMMARY: The patient was admitted on the above-noted date and had the above-noted surgery performed, which she tolerated well. On her first postoperative day, she had no complaints and the pain was controlled. Vital signs were stable. She was afebrile. Neurovascularly was intact. Toes were mobile. Dressings were clean, dry and intact and hemoglobin was 11.6. She was started on physical therapy protocol and continued on DVT prophylaxis and pain management. By her second postoperative day, she continued to have no complaints and pain was controlled. Vital signs were stable. She was afebrile. Silverlon dressing was clean, dry, and intact. Toes were mobile. Neurovascularly was intact. Calves were soft and nontender. The patient was progressing with her physical therapy and remaining stable and it was felt she could be discharged to home with home health services. For further review, please see chart. LABORATORY AND X-RAY DATA: As per chart. DISCHARGE INSTRUCTIONS: The patient was discharged to home in satisfactory condition on 11/02/2018. DIET: Regular. ACTIVITY: Follow TK instruction sheets and special care instructions as noted. Weightbearing as tolerated to the left lower extremity with walker. Follow up with Dr. Thomas in 2 weeks. The patient is to call for appointment if one has not been made for you. DISCHARGE MEDICATIONS: Acetaminophen 1000 mg p.o. q. 8 hours, aspirin 81 mg p.o. b.i.d., Celebrex 200 mg p.o. b.i.d., clindamycin 300 mg p.o. t.i.d., Colace 100 mg p.o. b.i.d., oxycodone 5 mg p.o. q. 6 hours p.r.n. Resume home meds as listed.
== END 2018-11-03 14:00 | disposition home or self-care (01) | DRG 470 ==
LOC: ASU 09:56 → 3E 15:36
DX: Z88.0 Allergy status to penicillin; Z98.890 Other specified postprocedural states; J44.9 Chronic obstructive pulmonary disease, unspecified; H93.19 Tinnitus, unspecified ear; Z88.5 Allergy status to narcotic agent; Z98.1 Arthrodesis status; M17.12 Unilateral primary osteoarthritis, left knee; Z86.79 Personal history of other diseases of the circulatory system; M81.8 Other osteoporosis without current pathological fracture; Z88.8 Allergy status to other drugs, medicaments and biological substances; Z88.1 Allergy status to other antibiotic agents; Z79.899 Other long term (current) drug therapy

== ENCOUNTER 2023-12-21 08:55 | Inpatient (IN) ==
--- NOTE | 2023-09-26 10:26 | PAT Medication Instructions ---
Medication Instructions Date of Service September 26, 2023 Home Medications amitriptyline 10 mg tablet 20 mg PO HS calcium carbonate 600 mg calcium (1,500 mg) tablet (Calcium) 600 mg PO QAM fluticasone propionate 220 mcg/actuation HFA aerosol inhaler (Flovent HFA) 2 puff inhalation QAM mepolizumab 100 mg subcutaneous solution (Nucala) 1 dose subcut MONTHLY potassium chloride 20 mEq tablet,extended release 20 meq PO QAM riboflavin (vitamin B2) 100 mg tablet 100 mg PO QAM albuterol sulfate 0.63 mg/3 mL solution for nebulization 0.63 mg inhalation QID PRN sob albuterol sulfate 90 mcg/actuation aerosol inhaler (Ventolin HFA) 2 puff inhalation QID PRN sob denosumab 60 mg/mL subcutaneous syringe (Prolia) 60 mg subcut UD mepolizumab 100 mg/mL subcutaneous syringe (Nucala) 100 mg subcut MO ASK your prescriber and surgeon amitriptyline 10 mg tablet 20 mg PO HS mepolizumab 100 mg subcutaneous solution (Nucala) 1 dose subcut MONTHLY mepolizumab 100 mg/mL subcutaneous syringe (Nucala) 100 mg subcut MO denosumab 60 mg/mL subcutaneous syringe (Prolia) 60 mg subcut UD DO NOT take the morning of surgery calcium carbonate 600 mg calcium (1,500 mg) tablet (Calcium) 600 mg PO QAM potassium chloride 20 mEq tablet,extended release 20 meq PO QAM riboflavin (vitamin B2) 100 mg tablet 100 mg PO QAM Take morning of surgery With a small sip of water, OTHERWISE NOTHING TO EAT OR DRINK AFTER MIDNIGHT: fluticasone propionate 220 mcg/actuation HFA aerosol inhaler (Flovent HFA) 2 puff inhalation QAM albuterol sulfate 0.63 mg/3 mL solution for nebulization 0.63 mg inhalation QID PRN sob (if needed) albuterol sulfate 90 mcg/actuation aerosol inhaler (Ventolin HFA) 2 puff inhalation QID PRN sob (use if needed; please bring rescue inhaler with you to hospital day of surgery if possible) Take evening before surgery albuterol sulfate 0.63 mg/3 mL solution for nebulization 0.63 mg inhalation QID PRN sob (if needed) albuterol sulfate 90 mcg/actuation aerosol inhaler (Ventolin HFA) 2 puff inhalation QID PRN sob (if needed) Other Notes If you have any questions please call us at [phone] or [phone] or [phone] or [phone]
--- NOTE | 2023-09-29 11:48 | Anesthesiology Consultation ---
Date of Service September 29, 2023 Assessment & Plan (1) Encounter for pre-operative examination: - awaiting surgeon ordered medical clearance-Thania Sevilla [facility] Jamal 09/30/23-once document is received will review with anesthesiologist if additional evaluation is needed regarding new bifascicular block. - IV team. Patient states staff have needed ultrasound for IV placement in the past. Chart Review Chart Review: Pending: Refer to Additional Notes / Consult section and Patient seen in Pre Admission Testing Teaching & Discussion Pre-Anesthesia Teaching/Discussion Notes: Instructed NPO after midnight before surgery, except medications with 15 cc of water. Medication instructions provided according to the PAT guidelines. History Surgery Operation Date: 10/19/23 07:45 Proposed Procedures p L2-L3 Decompression and Fusion, L3-L5 Hardware Removal, Spinal Cord Monitoring - Rasta Nagy DO Height/Weight Height: 5 ft 6 in Weight: 73.6 kg Allergies Allergy/AdvReac Type Severity Reaction Status Date / Time codeine Allergy Unknown Rash Verified 09/23/23 12:39 Penicillins Allergy Unknown Rash Verified 09/23/23 12:39 gentamicin AdvReac Unknown see comment Verified 09/23/23 12:39 Medications Home Medications Medication Instructions Recorded Confirmed Last Taken amitriptyline 10 mg tablet 20 mg PO HS 10/13/18 09/23/23 10/31/18 20:30 calcium carbonate 600 mg calcium 600 mg PO QAM 10/13/18 09/23/23 10/31/18 07:00 (1,500 mg) tablet (Calcium) fluticasone propionate 220 2 puff inhalation QA 10/13/18 09/23/23 11/01/18 08:00 mcg/actuation HFA aerosol inhaler (Flovent HFA) mepolizumab 100 mg subcutaneous 1 dose subcut MONTHLY 10/13/18 09/23/23 10/02/18 13:00 solution (Nucala) potassium chloride 20 mEq 20 meq PO QAM 10/13/18 09/23/23 10/31/18 08:30 tablet,extended release riboflavin (vitamin B2) 100 mg 100 mg PO QAM 10/13/18 09/23/23 10/31/18 08:30 tablet albuterol sulfate 0.63 mg/3 mL 0.63 mg inhalation QID PRN sob 09/23/23 09/23/23 Unknown solution for nebulization albuterol sulfate 90 mcg/actuation 2 puff inhalation QID PRN sob 09/23/23 09/23/23 Unknown aerosol inhaler (Ventolin HFA) denosumab 60 mg/mL subcutaneous 60 mg subcut UD 09/23/23 09/23/23 Unknown syringe (Prolia) mepolizumab 100 mg/mL subcutaneous 100 mg subcut MO 09/23/23 09/23/23 Unknown syringe (Nucala) Past Medical History Medical History (Updated 09/29/23 @ 12:06 by Tamela Hwang PA-C) Asthma uses rescue inhaler frequently; ~weekly - follow w/ pulm Dr Bernadette Larsen [facility], Atrial fibrillation pt reports successful ablation 2020 and released from [facility] cardiology Downs esophagus Chronic obstructive pulmonary disease Gentamicin ototoxicity hx Hearing deficit History of COVID-19 11/2022 - [facility] for asthma flare up; resolved Hx of intestinal obstruction 2017 post-op lumbar surgery requiring urgent surgery IBS (irritable bowel syndrome) Migraine stable per pt, denies change or worsening Premature osteoporosis Spinal stenosis Tinnitus Vertigo chronic-denies change or worsening Patient denies h/o stroke, seizures, heart attack, heart failure, DM, HTN, blood clots/DVTs or blood transfusions. Exercise / Class Metabolic Activity II 4-5 Yardwork/Stairs/Walk up hill (shortness of breath with 1 FOS ongoing x 30 yrs; denies change or worsening; denies chest discomfort) Past Family History Family History Mother Family history of reaction to anesthesia PONV Father Family history of diabetes mellitus Past Surgical History Surgical History (Updated 09/29/23 @ 12:08 by Tamela Hwang PA-C) Fusion of lumbar spine H/O sinus surgery History of appendectomy History of bowel resection History of bronchoscopy History of bunionectomy right great toe History of cardiac radiofrequency ablation 2010 History of cholecystectomy History of colonoscopy History of esophagogastroduodenoscopy (EGD) History of fundoplication History of partial hysterectomy History of tonsillectomy History of tooth extraction Hx of LASIK Nausea and vomiting after administration of anesthetic agent S/p bilateral myringotomy with tube placement Past Anesthesia History Other (post-op obstruction requiring urgent surgery after lumbar surgery in 2018; also reports anesthesia "stays in my system a while" post-op confusion; denies slowness to wake; sisters and mother with similar response to anesthesia) History of PONV History of PONV (denies needing scop patch) and Hx of Motion Sickness Social History Smoking Status: Never smoker Do You Dip or Chew Tobacco: No Hx Alcohol Use: No Hx Substance Use: No substance use type: does not use Review of Systems Patient denies chest pain, shortness of breath, dyspnea on exertion, snoring, witnessed apneas, reflux, fever, chills, cough, wheezing, or palpitations. Physical Exam Vital Signs Vitals BP 127/77 P 77 TEMP 97.9 SP02 95% on RA RESP 17 Physical Patient resting comfortably in chair in no acute distress, alert and oriented, responding appropriately throughout visit Full cervical extension range of motion without pain TMD 3.5 finger breadths Mallampati Score 2 Dentition: intact, denies chipped or loose teeth, caps/crowns, implants or bridges Lungs: normal respiratory effort. Good air movement, clear throughout to auscultation, no adventitious breath sounds Cardiac: regular rate and rhythm, no murmurs noted Carotid arteries: negative bruit bilat Lab Results Anesthesia Preop Results Results Anesthesia Widget: WBC 9.02 K/ul (4.8-10.8) 09/29/23 Hgb 14.0 g/dl (12.0-16.0) 09/29/23 Hct 41.6 % (37.0-47.0) 09/29/23 Plt 263 K/uL (130-400) 09/29/23 Na 139 mmol/L (136-145) 09/29/23 K 4.1 mmol/L (3.5-5.1) 09/29/23 Cl 106 mmol/L (98-107) 09/29/23 CO2 27 mmol/L (21-32) 09/29/23 BUN 16 mg/dl (6-23) 09/29/23 Creat 0.75 mg/dl (0.6-1.2) 09/29/23 Glucose Level 102 mg/dl (70-99(Fasting)) H 09/29/23 PT 10.3 Seconds (9.0-12.0) 09/29/23 PTT 26 Seconds (21-31) 09/29/23 INR 0.9 (0.9-1.1) 09/29/23 Urine Color Dark Yellow 09/29/23 Urine Appearance Cloudy (Clear) A 09/29/23 Urine pH 5.5 (4.5-7.5) 09/29/23 Urine Specific [place] 1.018 (1.000-1.030) 09/29/23 Urine Protein Negative (Negative) 09/29/23 Urine Glucose (UA) Negative (Negative) 09/29/23 Urine Ketones Negative (Negative) 09/29/23 Urine Blood Negative (Negative) 09/29/23 Urine Nitrite Negative (Negative) 09/29/23 Urine Bilirubin Negative (Negative) 09/29/23 Urine Urobilinogen Negative (Negative) 09/29/23 Urine Leukocyte Esterase 2+ (Negative) H 09/29/23 Urine WBC (Auto) 10-30 /hpf (0-5) H 09/29/23 Urine RBC (Auto) 5-10 /hpf (0-4) H 09/29/23 Urine Hyaline Casts (Auto) 1-5 /lpf (0-5) 09/29/23 Urine Epithelial Cells (Auto) >30 /lpf (0-5) H 09/29/23 Urine Bacteria (Auto) 1+ (Negative) H 09/29/23 Blood Type O Positive 09/29/23 Antibody Screen NEGATIVE 09/29/23 Testing Laboratory Results Janeth at surgeon's office made aware of abnormal UA. Electrocardiogram Date: 09/29/23 NSR, rate 78 bpm RBBB Left anterior fascicular block bifascicular block Bifascicular block new vs 2019 EKG Chest X-Ray Date: 09/29/23 No pneumothorax. No pleural effusions. Bibasilar linear densities favor subsegmental atelectasis are scarring. Otherwise, the lungs are clear. No evidence for pulmonary edema. The heart is normal in size. Incidental note is made of a small right azygos lobe. No acute fractures. Partially visualized lumbar spinal fusion hardware. Mild S-shaped scoliosis. Prior cholecystectomy. IMPRESSION: No significant change compared to the prior study. No acute process.
[2023-12-21] MEDS ORDERED: MIDAZOLAM HCL 1 MG/ML 2ML VIAL ONE (09:29)
[2023-12-21] MEDS ORDERED: PROPOFOL IV EMULSION 10 MG/ML 20 ML VIAL IV ONE (09:29)
[2023-12-21] MEDS ORDERED: LIDOCAINE 2% 2 ML VIAL/AMP(20MG/ML) INFIL ONE (09:29)
[2023-12-21] MEDS ORDERED: ONDANSETRON INJ 2 MG/ML 2 ML VIAL ONE (09:29)
[2023-12-21] MEDS ORDERED: fentaNYL citrate PF 100 MCG/2 ML VIAL ONE ×2 (09:29→12:16)
[2023-12-21] MEDS ORDERED: GLYCOPYRROLATE 0.2 MG/ML VIAL ONE (09:29)
[2023-12-21] MEDS ORDERED: ROCURONIUM BROMIDE 10 MG/ML 5 ML VIAL IV ONE ×2 (09:29)
[2023-12-21] MEDS ORDERED: DEXAMETHASONE SOD INJ 4 MG/ML VIAL ONE (09:29)
[2023-12-21] MEDS ORDERED: SUGAMMADEX SODIUM 200 MG/2 ML VIAL IV ONE (09:30)
[2023-12-21] MEDS: VANCOMYCIN HCL 1,000 MG/270 ML BAG IV SCH (09:33)
[2023-12-21] MEDS: LR 60ML/HR IV SCH (09:33)
[2023-12-21] MEDS: GABAPENTIN 300 MG CAP PO SCH (09:34)
[2023-12-21] MEDS: CeleBREX 200 MG CAP PO SCH (09:34)
[2023-12-21] MEDS: LR 15ML/HR IV SCH (09:34)
[2023-12-21 09:37] LABS: Appearance Urine Clear (Clear); Bacteria Urine Automated 3+ (None Seen); Bilirubin Urine Negative (Negative); Blood Urine Negative (Negative); Cast Urine Automated 0-2 /lpf (0-2); Color Urine Dark Yellow; Glucose Urine UA Negative (Negative); Ketones Urine Negative (Negative); Leukocyte Esterase Urine 3+ (Negative); Nitrite Urine Negative (Negative); Protein Urine Negative (Negative); RBC Urine Automated 0-2 /hpf (0-2); Specific Gravity Urine 1.019 (1.000-1.030); Urobilinogen Urine Negative (Negative)
--- NOTE | 2023-12-21 09:51 | History & Physical Bridge Note ---
Date of Service December 21, 2023 History & Physical Bridge Note I have examined the patient, reviewed the History & Physical and in the interval since the performance of the History & Physical I have noted the following changes of clinical significance: no changes noted
[2023-12-21 09:52] LABS: Basophils # (auto) 0.02 K/uL (0.00-0.20); Basophils % (auto) 0.3 %; Eosinophils # (auto) 0.06 K/uL (0.00-0.50); Eosinophils % (auto) 0.9 %; Hematocrit (blood only) 41.3 % (37.0-47.0); Hemoglobin 13.7 g/dl (12.0-16.0); Immature Granulocytes # (auto) 0.05 K/uL (0.01-0.20); Immature Granulocytes % (auto) 0.8 %; Lymphocytes # (auto) 1.44 K/uL (1.20-3.40); Lymphocytes % (auto) 22.3 %; Mean Corpuscular Hemoglobin 31.1 pg (25.0-34.0); Mean Corpuscular Hgb Conc 33.2 g/dL (32.0-36.0); Mean Corpuscular Volume 93.7 fL (80.0-100.0); Mean Platelet Volume 8.8 fL (9.4-12.4); Monocytes # (auto) 0.73 K/uL (0.11-0.59); Monocytes % (auto) 11.3 %; Neutrophils # (auto) 4.15 K/uL (1.40-6.50); Neutrophils % (auto) 64.4 %; Platelet Count 308 K/uL (130-400); RDW Coefficient of Variation 13.3 % (11.5-14.5); RDW Standard Deviation 45.8 fL (36.4-46.3); Red Blood Count 4.41 M/uL (4.20-5.40); White Blood Count 6.45 K/ul (4.8-10.8)
--- NOTE | 2023-12-21 09:52 | History & Physical Report ---
Date of Service December 21, 2023 Assessment & Plan (1) Neurogenic claudication due to lumbar spinal stenosis: Plan: L2-L3 decompression and fusion, hardware removal L3-L5 History of Present Illness Chief Complaint: Back and leg pain Primary Care Provider: Thania Sevilla PA-C This is a 68-year-old female presents with chronic persistent back and leg pain and failing close of nonoperative care is here for surgical invention. Allergies Allergy/AdvReac Type Severity Reaction Status Date / Time codeine Allergy Unknown Rash Verified 12/21/23 09:46 Penicillins Allergy Unknown Rash Verified 12/21/23 09:46 acetaminophen AdvReac Unknown Confusion Verified 12/21/23 09:46 gentamicin AdvReac Unknown see comment Verified 12/21/23 09:46 hydrocodone AdvReac Unknown Confusion Verified 12/21/23 09:46 hydromorphone AdvReac Unknown Confusion Verified 12/21/23 09:46 oxycodone AdvReac Unknown Confusion Verified 12/21/23 09:46 Home Medications Medication Instructions Recorded Confirmed Type amitriptyline 10 mg tablet 20 mg PO HS 10/13/18 12/21/23 History calcium carbonate (Calcium 600) 600 mg PO QAM 10/13/18 12/21/23 History fluticasone propionate 220 2 puff inhalation QAM 10/13/18 12/21/23 History mcg/actuation HFA aerosol inhaler (Flovent HFA) mepolizumab 100 mg subcutaneous 1 dose subcut MONTHLY 10/13/18 12/21/23 History solution (Nucala) potassium chloride 20 mEq 20 meq PO QAM 10/13/18 12/21/23 History tablet,extended release riboflavin (vitamin B2) 100 mg 100 mg PO QAM 10/13/18 12/21/23 History tablet albuterol sulfate 0.63 mg/3 mL 0.63 mg inhalation QID PRN sob 09/23/23 12/21/23 History solution for nebulization albuterol sulfate 90 mcg/actuation 2 puff inhalation QID PRN sob 09/23/23 12/21/23 History aerosol inhaler (Ventolin HFA) denosumab 60 mg/mL subcutaneous 60 mg subcut UD 09/23/23 12/21/23 History syringe (Prolia) zafirlukast 20 mg tablet (Accolate) 20 mg PO BID 12/06/23 12/21/23 History Past Med/Surg History Medical History (Updated 12/21/23 @ 09:52 by Rasta Nagy, ) Difficult intravenous access Family history of reaction to anesthesia mom - n/v. History of anesthesia reaction per pt report : sometimes anesthesia stays with me, for example with back surgery : didn't remember any part of hospital stay following back surgery. After discharge , returned and life flighted for bowel obstruction requiring sx (2018). Abnormal EKG oct 2023 upon pre op testing...eval with [place] [facility]ology and pulmonology...diagnostics determed to be related to asthma/has been cleared from cardio and pulm for upcoming procedure 12/21/23. Tinnitus Vertigo chronic-denies change or worsening History of COVID-19 11/2022 - admitted to [facility]. for asthma flare up; resolved Hx of intestinal obstruction 2018 post-op lumbar surgery requiring urgent surgery Gentamicin ototoxicity hx Spinal stenosis Premature osteoporosis IBS (irritable bowel syndrome) Hearing deficit Migraine stable per pt, denies change or worsening Atrial fibrillation pt reports successful ablation 2020 and released from [facility] cardiology Downs esophagus Chronic obstructive pulmonary disease Asthma uses rescue inhaler daily currently/flare early november 2023 (prednisone completed) - follow w/ pulm Dr Bernadette Larsen [facility], Surgical History History of total left knee replacement History of cardiac radiofrequency ablation 2010 S/p bilateral myringotomy with tube placement History of fundoplication Nausea and vomiting after administration of anesthetic agent History of bunionectomy right great toe History of partial hysterectomy History of esophagogastroduodenoscopy (EGD) History of colonoscopy History of cholecystectomy History of appendectomy History of bowel resection H/O sinus surgery Hx of LASIK History of tonsillectomy History of tooth extraction Fusion of lumbar spine History of bronchoscopy Family History Mother Family history of reaction to anesthesia PONV Father Family history of diabetes mellitus Social History Smoking Status: Never smoker Second Hand Exposure: No; Do You Dip or Chew Tobacco: No; Tobacco Cessation Education Requested by Patient: No Hx Alcohol Use: No Hx Substance Use: No Preferred Language: Pashto Communication Ability: Effective Retrofit Installer Required: No Beliefs That Will Affect Care: None Current Living Situation: Spouse Other Information That Helps Us Care for You: No Feels Safe at Home: Yes Safety Concerns: Feels Safe At This Time Assistive Devices: None Physical Exam Physical Exam: Patient is alert and oriented Heart regular rhythm Lungs clear Results & Data Results & Data Vital Signs (Past 12 Hours) Vital Signs Temp Pulse Resp BP Pulse Ox O2 Del Method 12/21/23 09:37 Room Air 12/21/23 09:37 36.6 C 79 18 145/83 H 95 Room Air
[2023-12-21 10:05] LABS: BUN Creatinine Ratio 26.4 (10-20); Calcium 9.5 mg/dl (8.6-10.3); Creatinine Clr Calc Pharmacy 74.6 ml/min; Est GFR (African American) 98.3 ml/min; Est GFR (Non-African American) 84.9 ml/min; Potassium 3.9 mmol/L (3.5-5.1)
[2023-12-21 10:20] LABS: INR 0.9 (0.9-1.1); Partial Thromboplastin Time 27 Seconds (21-31); Prothrombin Time 10.3 Seconds (9.0-12.0)
[2023-12-21] MEDS: BUPIVACAINE/EPINEPHRINE 0.25% 1:200,000 30 ML VIAL ONE (10:53)
[2023-12-21] MEDS: FLOSEAL HEMOSTATIC MATRIX 10ML TOP ONE (12:01)
--- NOTE | 2023-12-21 12:10 | Operative Report ---
Post Operative Report Pre & Post Diagnosis Operation Date: 12/21/23 10:15 Pre-Op Diagnosis: Spinal Stenosis of Lumbar Region with Neurogenic Claudication Post-Op Diagnosis: Spinal Stenosis of Lumbar Region with Neurogenic Claudication I identified the patient and participated in the time-out.: Yes Procedure Operation Date: 12/21/23 10:15 Actual Procedures #1 removal of posterior instrumentation L3 L5. #2 exploration of fusion L3-L5. #3 lumbar decompression with bilateral medial facetectomies and foraminotomies L2-L3. #4 posterior spinal fusion L2-L3. #5 placement posterior instrumentation L2-L5. #6 interbody fusion L2-L3. #7 placement of Spira 13 x 26 mm at L2-L3. #8 placement locally harvested morselized autograft in the posterior gutters. #9 placement infuse collagen sponge combined with Koros bone graft in the posterior lateral gutters and Morpheus bone graft interbody space. Surgeon Rasta Nagy, DO Machine Lacer Cassidy Manzano Estimated Blood Loss 250 Findings Consistent with Post-Op Diagnosis Specimens None Indications This is a 68-year-old female who presents above-mentioned diagnosis after failing course of nonoperative care is here for surgical invention. Description of Procedure Patient was met with identified informed consent obtained. Patient was then taken to the operative suite underwent patient placed in a prone position on the Nacho table top the Torres frame. All bony promises well-padded eyes inspected to ensure no external pressure placed upon them. This point the lumbar spine was prepped and draped in a sterile fashion. Sharp dissection with the assistance of Bovie cautery from down to and exposing the lamina transverse processes of L2 and instrumentation at L3-L4-L5 bilaterally. I then proceeded move the hardware bilaterally explore the fusion mass noting it to be mature and intact. Then performed complete laminectomy of L2 including bilateral medial facetectomies and foraminotomies addressing severe spinal stenosis. Pedicle screws were then placed in L2-L3 and L5 bilaterally with assistance of fluoroscopy and appropriate sized baylee placed. By way the transforaminal approach on the right a complete discectomy L2-L3 was performed endplates guided to subcortical bleeding bone and a 13 x 26 mm Spira cage filled with Morpheus bone graft tapped in position. The rods then locked in final position bilaterally. The transverse processes of L2-L3 burred to subcortical bleeding bone. Infuse collagen sponge combined with Koros and local autograft placed in the posterior lateral gutters. 15 round RAMONA drain inserted. The incision was then closed with 1 Vicryl the fascia 2-0 Vicryl subcutaneously and 4 Monocryl fo r final skin closure. Steri-Strips sterile dressing placed. Patient waken taken to PACU in stable condition. Please note spinal cord monitoring visualized at the procedure no changes noted. Lastly Cassidy aMnzano was present at the entire surgery and all the patient positioning complex portion of the surgery and final skin closure. I attest to the content of the Intraoperative Record and any orders documented therein. Any exceptions are noted below.
--- NOTE | 2023-12-21 12:59 | Fluoroscopy Report ---
FL lumbar spine 2-3V CLINICAL HISTORY: L2=L3 DECOMPRESSION AND FUSION REMOVAL L3-L5 COMPARISON STUDY: None. FLUOROSCOPY TIME: 17 seconds. FLUOROSCOPY IMAGES: 2 Ka,r: 10 point mGy FINDINGS: Posterior decompression fusion from L2 through L5 with pedicle screws and rods. There are n o pedicle screws at the L4 level. There is an L2-L3 disc spacer in place. The hardware appears intact . IMPRESSION: Fluoroscopic assistance as above. ACT 112: Negative or not required by law. Electronically signed by: George Osei M.D. 12/21/2023 12:57 PM
[2023-12-21] MEDS: fentaNYL citrate PF 100 MCG/2 ML VIAL IV PRN (13:05)
[2023-12-21] MEDS ORDERED: HYDROmorphone INJ 2 MG/ML SYR/VIAL IV PRN (13:06)
[2023-12-21] MEDS ORDERED: PROMETHAZINE HCL 6.25 MG in SODIUM CHLORIDE 0.9% 50 ML IV PRN (13:06)
[2023-12-21] MEDS ORDERED: ATROPINE SULFATE 0.1 MG/ML 10ML SYR IV PRN (13:06)
[2023-12-21] MEDS ORDERED: ePHEDrine sulfate 50 MG/ML AMP IV PRN (13:06)
[2023-12-21] MEDS ORDERED: ONDANSETRON INJ 2 MG/ML 2 ML VIAL IV PRN ×2 (13:06→14:10)
[2023-12-21] MEDS: fentaNYL citrate PF 100 MCG/2 ML VIAL ONE (13:09)
--- NOTE | 2023-12-21 13:38 | Anesthesiology Progress Note ---
Date of Service December 21, 2023 Anesthesia Post Procedure Vital Signs Vital Signs: Temp Pulse Resp BP Pulse Ox O2 Del Method O2 Flow Rate 12/21/23 13:20 68 18 125/73 96 Nasal Cannula 2 12/21/23 13:10 63 14 133/74 95 Nasal Cannula 2 12/21/23 13:00 68 16 131/76 94 Nasal Cannula 2 12/21/23 12:50 81 17 146/76 H 90 Room Air 12/21/23 12:40 68 18 134/75 96 Oxymask 4 12/21/23 12:30 75 21 140/73 98 Oxymask 6 12/21/23 12:23 36.5 C 70 15 118/72 96 Oxymask 8 12/21/23 09:37 Room Air 12/21/23 09:37 36.6 C 79 18 145/83 H 95 Room Air Pain Intensity Back: Pain Intensity: 4 Transfer of Care Handoff Completed per policy Notes Mental Status: alert / awake / arousable and participated in evaluation Patient Amnestic to Procedure: Yes Nausea / Vomiting: adequately controlled Pain: adequately controlled Airway Patency, RR, SpO2: stable & adequate BP & HR: stable & adequate Hydration State: stable & adequate Anesthetic Complications: no major complications apparent
[2023-12-21] MEDS ORDERED: MAGNESIUM HYDROXIDE SUSP 30 ML UDC PO PRN (14:10)
[2023-12-21] MEDS ORDERED: ONDANSETRON 4 MG OD TAB PO PRN (14:10)
[2023-12-21] MEDS ORDERED: SOD PHOSPHATE/SOD BIPHOSPHATE ENEMA 132 ML BTL PR PRN (14:10)
[2023-12-21] MEDS ORDERED: METOCLOPRAMIDE HCL INJ 5 MG/ML 2 ML VIAL IV PRN (14:10)
[2023-12-21] MEDS ORDERED: ALBUTEROL HFA 8 GM INHALER INH PRN (14:10)
[2023-12-21] MEDS ORDERED: LORazepam 0.5 MG TAB PO PRN (14:10)
[2023-12-21] MEDS ORDERED: PROMETHAZINE HCL 12.5 MG in SODIUM CHLORIDE 0.9% 50 ML IV PRN (14:10)
[2023-12-21] MEDS ORDERED: ACETAMINOPHEN 500 MG TAB PO PRN (14:10)
[2023-12-21] MEDS ORDERED: NON-FORMULARY MEDICATION (Albuterol Sulfate 0.63 mg/3 mL Solution For Nebulization) INH PRN (14:10)
[2023-12-21] MEDS ORDERED: DO NOT ADMINISTER FLU VACCINE PRN (14:10)
[2023-12-21] MEDS ORDERED: LORazepam 0.5 MG in SYRINGE 0.25 ML IV PRN (14:10)
[2023-12-21] MEDS ORDERED: diphenhydrAMINE Capsule 25 MG CAP PO PRN (14:10)
[2023-12-21] MEDS ORDERED: ACETAMINOPHEN 1,000 MG/100 ML VIAL IV PRN (14:10)
[2023-12-21] MEDS ORDERED: ALUMINUM/MAGNESIUM SUSP 30 ML UDC PO PRN (14:10)
[2023-12-21] MEDS ORDERED: MoRPHine SULFATE 4 MG/ML 1 ML CARP\\VIAL IV PRN (14:10)
[2023-12-21] MEDS ORDERED: FAMOTIDINE 20 MG TAB PO PRN (14:10)
[2023-12-21] MEDS ORDERED: NALOXONE HCL 0.4 MG/1 ML VIAL/CARP IV PRN (14:10)
[2023-12-21] MEDS ORDERED: bisacodyL 10 MG SUPP PR PRN (14:10)
[2023-12-21] MEDS ORDERED: hydrOXYzine HCl 25 MG TAB PO PRN (14:10)
[2023-12-21] MEDS ORDERED: DO NOT ADMINISTER PNEUMOCOCCAL VACCINE PRN (14:10)
--- NOTE | 2023-12-21 14:49 | Consultation ---
Date of Consultation December 21, 2023 Assessment & Plan (1) S/P spinal surgery: (2) Neurogenic claudication due to lumbar spinal stenosis: Post op day# 0 S/P removal instrumentation L3-L5 and fusion decompression L3-L5 by Dr Lilo GARSIA#250ml Pain management per ortho Wound management per ortho PT/OT as appropriate DVT prophylaxis per ortho Incentive spirometry Monitor H&H for acute blood loss anemia, pre-op Hgb: 13.7 (3) Asthma: (4) Chronic obstructive pulmonary disease: Follows with pulmonology at [facility] No current SOB or wheezing. No signs exacerbation Continue home inhalers, zafirlukast and albuterol nebulizer as needed. On Nucala monthly (5) Atrial fibrillation: S/P Ablation 2020 Current sinus rhythm per auscultation (6) IBS (irritable bowel syndrome): Continue amitriptyline (7) Migraine: History migraine GIPSON Denies current GIPSON Continue amitriptyline DVT Prophylaxis SCDs Disposition per primary service Follows with Dr Horacio Espinosa in [place] for routine care Pt was seen and care coordinated with Dr Leon. See addendum Thank you for this consultation. We will follow the patient with you during their hospital stay. You can reach a member of the [facility] Hospitalist Team 04/04 via [facility] Supervising Physician Co-Signing Physician Notes Pt seen and examined by me, care coordinated w/ Tia Martinez PA-C, pls refer to her note above for further detail. Patient is 68 yo F with h/o atrial fibrillation s/p ablation, COPD, asthma, IBS, Downs's esophagus, history migraine GIPSON seen in medical consultation s/p removal instrumentation L3-L5 and fusion decompression L3-L5 today by Dr. Nagy. Post op patient reports some low back pain. has been having increased shortness of breath on exertion and following with pulmonology [facility]. was cleared for surgery by pulmonology and cardiology. She works is to have further testing to determine if may have underlying pulmonary hypertension. Currently denies any shortness of breath but is on suppl. O2. Denies fever/chills, dizziness, chest pain, abdominal pain, extremity weakness. She is awake, alert able to answer appropriately. Lungs are clear to auscultation, heart sounds regular, abdomen soft, nontender. Redd placed and draining clear yellow urine. Cont. to closely monitor, will try to wean off oxygen. MD Carolyn History of Present Illness Requesting Physician: Dr Nagy Reason for Consultation: Post op medical management Attending Physician: Rasta Nagy DO History of Present Illness Patient is 68 year old female with PMH atrial fibrillation s/p ablation, COPD, asthma, IBS, Downs's esophagus, history migraine GIPSON seen in medical con sultation s/p removal instrumentation L3-L5 and fusion decompression L3-L5 today by Dr. Nagy. Post op patient reports some low back pain. Last BM this morning. Has Redd catheter in place. Patient reports had URI couple weeks ago with symptoms resolved. [facility] has been having increased SOB and past couple of months and following with pulmonology [facility]. States was cleared for surgery by pulmonology and cardiology. She works is to have further testing to determine if may have underlying pulmonary hypertension. Denies fever/chills, diaphoresis, N/V/D/C, GIPSON, dizziness, CP, SOB, palpitations, cough, rhinorrhea, abdominal pain, extremity weakness, extremity edema, rashes, urinary symptoms. Allergies Allergy/AdvReac Type Severity Reaction Status Date / Time codeine Allergy Unknown Rash Verified 12/21/23 09:46 Penicillins Allergy Unknown Rash Verified 12/21/23 09:46 acetaminophen AdvReac Unknown Confusion Verified 12/21/23 09:46 gentamicin AdvReac Unknown see comment Verified 12/21/23 09:46 hydrocodone AdvReac Unknown Confusion Verified 12/21/23 09:46 hydromorphone AdvReac Unknown Confusion Verified 12/21/23 09:46 oxycodone AdvReac Unknown Confusion Verified 12/21/23 09:46 Home Medications Medication Instructions Recorded Confirmed Type amitriptyline 10 mg tablet 20 mg PO HS 10/13/18 12/21/23 History calcium carbonate (Calcium 600) 600 mg PO QAM 10/13/18 12/21/23 History mepolizumab 100 mg subcutaneous 1 dose subcut MONTHLY 10/13/18 12/21/23 History solution (Nucala) potassium chloride 20 mEq 20 meq PO QAM 10/13/18 12/21/23 History tablet,extended release riboflavin (vitamin B2) 100 mg 100 mg PO QAM 10/13/18 12/21/23 History tablet albuterol sulfate 0.63 mg/3 mL 0.63 mg inhalation QID PRN sob 09/23/23 12/21/23 History solution for nebulization albuterol sulfate 90 mcg/actuation 2 puff inhalation QID PRN sob 09/23/23 12/21/23 History aerosol inhaler (Ventolin HFA) denosumab 60 mg/mL subcutaneous 60 mg subcut UD 09/23/23 12/21/23 History syringe (Prolia) zafirlukast 20 mg tablet (Accolate) 20 mg PO BID 12/06/23 12/21/23 History fluticasone furoate 200 1 inh inhalation DAILY 12/21/23 12/21/23 History mcg-vilanterol 25 mcg/dose inhalation powder (Breo Ellipta) Patient History Medical History (Updated 12/21/23 @ 15:27 by Annie Martinez PA-C) Difficult intravenous access Family history of reaction to anesthesia mom - n/v. History of anesthesia reaction per pt report : sometimes anesthesia stays with me, for example with back surgery : didn't remember any part of hospital stay following back surgery. After discharge , returned and life flighted for bowel obstruction requiring sx (2018). Abnormal EKG oct 2023 upon pre op testing...eval with [facility] and p ulmonology...diagnostics determed to be related to asthma/has been cleared from cardio and pulm for upcoming procedure 12/21/23. Tinnitus Vertigo chronic-denies change or worsening History of COVID-19 11/2022 - admitted to [facility]. for asthma flare up; resolved Hx of intestinal obstruction 2018 post-op lumbar surgery requiring urgent surgery Gentamicin ototoxicity hx Spinal stenosis Premature osteoporosis IBS (irritable bowel syndrome) Hearing deficit Migraine stable per pt, denies change or worsening Atrial fibrillation pt reports successful ablation 2020 and released from [facility] cardiology Downs esophagus Chronic obstructive pulmonary disease Asthma uses rescue inhaler daily currently/flare early november 2023 (prednisone completed) - follow w/ pulm Dr Bernadette Larsen [facility], Surgical History (Updated 12/21/23 @ 14:55 by Annie Martinez PA-C) History of total left knee replacement History of cardiac radiofrequency ablation 2010 S/p bilateral myringotomy with tube placement History of fundoplication Nausea and vomiting after administration of anesthetic agent History of bunionectomy right great toe History of partial hysterectomy History of esophagogastroduodenoscopy (EGD) History of colonoscopy History of cholecystectomy History of appendectomy History of bowel resection H/O sinus surgery Hx of LASIK History of tonsillectomy History of tooth extraction Fusion of lumbar spine History of bronchoscopy Family History Mother Family history of reaction to anesthesia PONV Father Family history of diabetes mellitus Social History Smoking Status: Never smoker Second Hand Exposure: No; Do You Dip or Chew Tobacco: No; Tobacco Cessation Education Requested by Patient: No Hx Alcohol Use: No Hx Substance Use: No Preferred Language: Belgian Communication Ability: Effective Student Loan Counselor Required: No Beliefs That Will Affect Care: None Current Living Situation: Spouse Other Information That Helps Us Care for You: No Feels Safe at Home: Yes Safety Concerns: Feels Safe At This Time Assistive Devices: None Review of Systems Review of Systems: All systems reviewed & are unremarkable except as noted in HPI & below Physical Exam Physical Exam: General: no distress, WDWN Head: normocephalic, atraumatic Eyes: conjunctiva non-injected, anicteric ENT: normal inspection external ears, nose, mucous membranes moist Neck: supple, trachea midline Lungs: clear, no respiratory distress, no wheezing/rhonchi/rales CV: RRR, no murmur, no pretibial edema Abd: normal BS, soft, non-tender Back: surgical dressing in place, +ARMONA drain in place with serosanguineous drainage Ext: no cyanosis, no calf tenderness, pedal pushes and pulls intact bilaterally, sensation to light touch intact Neuro: A&O x 3, no focal deficits noted, normal affect Skin: warm, dry Results & Data Vital Signs (Past 12 Hours) Vital Signs Temp Pulse Pulse Resp BP Pulse Ox O2 Del Method 12/21/23 14:00 Nasal Cannula 12/21/23 13:55 36.5 C 72 18 117/71 92 Nasal Cannula 12/21/23 13:35 36.5 C 66 15 123/70 95 Nasal Cannula 12/21/23 13:20 68 18 125/73 96 Nasal Cannula 12/21/23 13:10 63 14 133/74 95 Nasal Cannula 12/21/23 13:00 68 16 131/76 94 Nasal Cannula 12/21/23 12:50 81 17 146/76 H 90 Room Air 12/21/23 12:40 68 18 134/75 96 Oxymask 12/21/23 12:30 75 21 140/73 98 Oxymask 12/21/23 12:23 36.5 C 70 15 118/72 96 Oxymask 12/21/23 09:37 Room Air 12/21/23 09:37 36.6 C 79 18 145/83 H 95 Room Air O2 Flow Rate 12/21/23 14:00 2 12/21/23 13:55 2 12/21/23 13:35 2 12/21/23 13:20 2 12/21/23 13:10 2 12/21/23 13:00 2 12/21/23 12:50 12/21/23 12:40 4 12/21/23 12:30 6 12/21/23 12:23 8 12/21/23 09:37 12/21/23 09:37 Laboratory Results Short CBC 12/21/23 Range/Units 09:40 WBC 6.45 (4.8-10.8) K/ul Hgb 13.7 (12.0-16.0) g/dl Hct 41.3 (37.0-47.0) % Plt Count 308 (130-400) K/uL BMP 12/21/23 09:40 Sodium 140 Potassium 3.9 Chloride 106 Carbon Dioxide 27 BUN 19 Creatinine 0.72 Glucose 117 H Calcium 9.5 Urine 12/21/23 Range/Units 09:05 Urine Color Dark Yellow Urine Appearance Clear (Clear) Urine pH 7.0 (4.5-7.5) Ur Specific [place] 1.019 (1.000-1.030) Urine Protein Negative (Negative) Urine Glucose (UA) Negative (Negative)
[2023-12-21] MEDS ORDERED: ALBUTEROL 0.083% NEBU SOLN 3 ML VIAL NEB PRN (14:57)
[2023-12-21] MEDS: MoRPHine SULFATE 2 MG/ML CARP IV PRN (15:15)
[2023-12-21] MEDS: LACTATED RINGER'S 1,000 ML IV SCH (15:15)
[2023-12-21] MEDS: KETOROLAC TROMETHAMINE 15 MG/ML VIAL IV SCH (16:04)
[2023-12-21] MEDS: CLINDAMYCIN/D5W 600 MG/50 ML BAG IV SCH (18:37)
[2023-12-21] MEDS: traMADol HCL 50 MG TABLET PO PRN (18:40)
[2023-12-21] MEDS: DOCUSATE SODIUM/SENNA 50/8.6MG TAB PO SCH (20:25)
[2023-12-21] MEDS ORDERED: AMITRIPTYLINE HCL 10 MG TAB PO SCH (21:00)
[2023-12-22] MEDS: POLYETHYLENE (MIRALAX) 17 GM PACK PO SCH (05:54)
[2023-12-22 08:24] LABS: Basophils # (auto) 0.02 K/uL (0.00-0.20); Basophils % (auto) 0.2 %; Eosinophils # (auto) 0.03 K/uL (0.00-0.50); Eosinophils % (auto) 0.3 %; Hematocrit (blood only) 35.3 % (37.0-47.0); Hemoglobin 11.2 g/dl (12.0-16.0); Immature Granulocytes # (auto) 0.05 K/uL (0.01-0.20); Immature Granulocytes % (auto) 0.5 %; Lymphocytes # (auto) 1.29 K/uL (1.20-3.40); Lymphocytes % (auto) 13.7 %; Mean Corpuscular Hemoglobin 30.8 pg (25.0-34.0); Mean Corpuscular Hgb Conc 31.7 g/dL (32.0-36.0); Mean Platelet Volume 9.2 fL (9.4-12.4); Monocytes # (auto) 1.04 K/uL (0.11-0.59); Neutrophils # (auto) 7.01 K/uL (1.40-6.50); Neutrophils % (auto) 74.3 %; Platelet Count 264 K/uL (130-400); RDW Coefficient of Variation 13.2 % (11.5-14.5); Red Blood Count 3.64 M/uL (4.20-5.40); White Blood Count 9.44 K/ul (4.8-10.8)
[2023-12-22 08:41] LABS: Calcium 8.6 mg/dl (8.6-10.3); Potassium 4.1 mmol/L (3.5-5.1)
[2023-12-22 08:47] LABS: Creatinine Clr Calc Pharmacy 71.6 ml/min; Est GFR (African American) 93.6 ml/min; Est GFR (Non-African American) 80.8 ml/min
[2023-12-22] MEDS: CALCIUM CARBONATE 1250MG TAB PO SCH (08:47)
[2023-12-22] MEDS: FLUTICASONE/VILANTEROL 200/25MCG 14 PUFFS/INHALER INH SCH (08:54)
[2023-12-22] MEDS ORDERED: NON-FORMULARY MEDICATION (Riboflavin (Vitamin B2) 100 mg Tablet) PO SCH (09:00)
[2023-12-22] MEDS ORDERED: FLUTICASONE FUROATE 200MCG 14 PUFFS/INHALER INH SCH (09:00)
[2023-12-22] MEDS: dexAMETHasone 6 MG in SYRINGE 0 ML IV SCH (09:01)
[2023-12-22] MEDS: POTASSIUM CHLORIDE CRTAB 20 MEQ TABCR PO SCH (09:15)
--- NOTE | 2023-12-22 10:48 | Orthopedic Progress Note ---
Date of Service December 22, 2023 Assessment & Plan (1) Neurogenic claudication due to lumbar spinal stenosis: Plan: At this time we will continue physical therapy monitor RAMONA output anticipate discharge home in the next few days. Admission and Anticipated Discharge Date Admission Date: December 21, 2023 Subjective Back pain controlled leg symptoms markedly improved Physical Exam Physical Exam: Patient is in bed at this time. She is comfortable. Discussing the testing. Results & Data Vital Signs (Past 12 Hours) Vital Signs Temp Pulse Resp BP Pulse Ox O2 Del Method O2 Flow Rate 12/22/23 08:03 37.2 C 62 14 114/71 94 Nasal Cannula 2 12/22/23 03:04 92 Nasal Cannula 2 12/22/23 02:34 36.6 C 69 18 107/67 96 Nasal Cannula 3 12/21/23 23:22 36.5 C 77 18 114/76 93 Nasal Cannula 3
--- NOTE | 2023-12-22 14:52 | Hospitalist Progress Note ---
Date of Service December 22, 2023 Assessment & Plan (1) S/P spinal surgery: (2) Neurogenic claudication due to lumbar spinal stenosis: Plan: Post op day# 1 S/P removal instrumentation L3-L5 and fusion decompression L3-L5 by Dr Lilo GARSIA#250ml Pain management per ortho Wound management per ortho PT/OT as appropriate DVT prophylaxis per ortho Incentive spirometry Hemoglobin slightly low to 11.2 likely secondary to acute blood loss anemia from surgery/hemodilution (3) Asthma: (4) Chronic obstructive pulmonary disease: Plan: Follows with pulmonology at [facility] No current SOB or wheezing. No signs exacerbation Continue home inhalers, zafirlukast and albuterol nebulizer as needed. On Nucala monthly (5) Atrial fibrillation: Plan: S/P Ablation 2020 Current sinus rhythm per auscultation (6) IBS (irritable bowel syndrome): Plan: Continue amitriptyline (7) Migraine: Plan: History migraine GIPSON Denies current GIPSON Continue amitriptyline DVT Prophylaxis SCDs Disposition per primary service Follows with Dr Horacio Espinosa in [place], [place] for routine care Please note the above document was generated using voice recognition software. It may contain grammatical, syntax or spelling errors. Any formal questions or concerns about the content, text or information contained within the body of this dictation should be directly addressed to the provider for clarification Admission and Anticipated Discharge Date Admission Date: December 21, 2023 Subjective Patient seen and examined at bedside. Comfortable; not in distress. Denies fever, chills, chest pain, shortness of breath, abdominal pain or urinary symptoms. No significant overnight events Review of Systems Review of Systems: All systems reviewed & are unremarkable except as noted in Subjective Physical Exam Physical Exam: General: no distress, WDWN Lungs: clear, no respiratory distress, no wheezing/rhonchi/rales CV: RRR, no murmur, no pretibial edema Abd: normal BS, soft, non-tender Back: surgical dressing in place, +RAMONA drain in place with serosanguineous drainage Ext: no cyanosis, no calf tenderness, pedal pushes and pulls intact bilaterally, sensation to light touch intact Neuro: A&O x 3, no focal deficits noted, normal affect Skin: warm, dry Results & Data Results & Data Vital Signs (Past 12 Hours) Vital Signs Temp Pulse Resp BP BP Pulse Ox O2 Del Method 12/22/23 11:17 37.4 C 77 18 120/72 88 L Room Air 12/22/23 08:03 37.2 C 62 14 114/71 94 Nasal Cannula 12/22/23 03:04 92 Nasal Cannula O2 Flow Rate 12/22/23 11:17 12/22/23 08:03 2 12/22/23 03:04 2
[2023-12-22] MEDS: ZAFIRLUKAST 20 MG TAB PO SCH (21:01)
--- NOTE | 2023-12-23 10:51 | Orthopedic Progress Note ---
Date of Service December 23, 2023 Assessment & Plan (1) Neurogenic claudication due to lumbar spinal stenosis: Plan: Ofelia is postoperative day 2 status post hard removal L3-5, decompression and fusion L2-3. Will continue to focus on aggressive bowel regimen today. DVT prophylaxis is in the form of teds and SCDs. Continue with pain control. I have encouraged ambulation. If she has a bowel movement, anticipate discharge home tomorrow. Admission and Anticipated Discharge Date Admission Date: December 21, 2023 Subjective Ofelia is postoperative day 2 status post hardware removal L3-5, decompression and fusion L2-3. Now she has little bit of back pain. Preoperative lower extremity symptoms have resolved. She is quite anxious and worried about having a bowel movement. After her last back surgery in [place] 5+ years ago she ended up having an obstruction which resulted in a colon resection. Currently passing flatus. No nausea, no abdominal distention, no abdominal pain. RAMONA drain output last shift was 50 cc Review of Systems Review of Systems: All systems reviewed & are unremarkable except as noted in HPI & below Physical Exam Physical Exam: Alert and oriented x 3 No acute distress Abdomen is soft and nondistended Lumbar dressing is clean dry intact with functioning RAMONA drain Strength intact bilateral lower extremities Results & Data Vital Signs (Past 12 Hours) Vital Signs Temp Pulse Resp BP Pulse Ox O2 Del Method 12/23/23 07:47 36.6 C 81 18 131/67 92 Room Air
[2023-12-23] MEDS ORDERED: MAGNESIUM HYDROXIDE SUSP 30 ML UDC PO SCH (11:00)
--- NOTE | 2023-12-23 14:12 | Hospitalist Progress Note ---
Date of Service December 23, 2023 Assessment & Plan (1) S/P spinal surgery: (2) Neurogenic claudication due to lumbar spinal stenosis: Plan: Post op day# 2 S/P removal instrumentation L3-L5 and fusion decompression L3-L5 by Dr Lilo GARSIA#[id number] Pain management per ortho Wound management per ortho PT/OT as appropriate DVT prophylaxis per ortho Incentive spirometry Hemoglobin slightly low to 11.2 likely secondary to acute blood loss anemia from surgery/hemodilution Bowel movement since admission. Patient denies abdominal pain, nausea or vomiting. Diet changed to low fiber diet due to the history of small bowel obstruction. Monitor for signs of small bowel obstruction. (3) Asthma: (4) Chronic obstructive pulmonary disease: Plan: Follows with pulmonology at [facility] No current SOB or wheezing. No signs exacerbation Continue home inhalers, zafirlukast and albuterol nebulizer as needed. On Nucala monthly (5) Atrial fibrillation: Plan: S/P Ablation 2020 Current sinus rhythm per auscultation (6) IBS (irritable bowel syndrome): Plan: Continue amitriptyline (7) Migraine: Plan: History migraine GIPSON Denies current GIPSON Continue amitriptyline DVT Prophylaxis SCDs Disposition per primary service Follows with Dr Horacio Espinosa in [place], [place] for routine care Please note the above document was generated using voice recognition software. It may contain grammatical, syntax or spelling errors. Any formal questions or concerns about the content, text or information contained within the body of this dictation should be directly addressed to the provider for clarification Admission and Anticipated Discharge Date Admission Date: December 21, 2023 Subjective Patient seen and examined at bedside. Comfortable; not in distress. Denies fever, chills, chest pain, shortness of breath, abdominal pain or urinary symptoms. No significant overnight events No bowel movement. Repleted. Patient reported history of bowel obstruction in postoperative period requiring surgery. Review of Systems Review of Systems: All systems reviewed & are unremarkable except as noted in Subjective Physical Exam Physical Exam: General: no distress, WDWN Lungs: clear, no respiratory distress, no wheezing/rhonchi/rales CV: RRR, no murmur, no pretibial edema Abd: normal BS, soft, non-tender Back: surgical dressing in place, Ext: no cyanosis, no calf tenderness, pedal pushes and pulls intact bilaterally, sensation to light touch intact Neuro: A&O x 3, no focal deficits noted, normal affect Skin: warm, dry Results & Data Results & Data Vital Signs (Past 12 Hours) Vital Signs Temp Pulse Resp BP Pulse Ox O2 Del Method 12/23/23 07:47 36.6 C 81 18 131/67 92 Room Air
--- NOTE | 2023-12-24 08:26 | Discharge Summary ---
Date of Service December 24, 2023 Admission HPI Per Admitting Provider This is a 68-year-old female presents with chronic persistent back and leg pain and failing close of nonoperative care is here for surgical invention. Discharge Data Consultations 12/21/23 14:10 Consult Hospitalist Routine Procedures Performed Operation Date: 12/21/23 10:15 Actual Procedures p L2-L3 Decompression and Fusion, Spinal Cord Monitoring(Not Applicable) - Rasta Nagy DO s Hardware Removal L3-L5(Not Applicable) - Rasta Nagy DO Hospital Course (1) Neurogenic claudication due to lumbar spinal stenosis: Patient is a pleasant 68-year-old female with history physical examination Images consistent with the above-mentioned diagnosis. This reason she was brought to the operating room on 12/21/2019 for and had undergone a removal of hardware from L3-L5 lumbar decompression L2-3 and continuation fusion from L2-5. This performed by Dr. Nagy under general anesthesia. She left the operating with a RAMONA drain Redd in place and transferred to PACU in stable condition. She is then transferred to the orthopedic floor where she was placed on GI DVT prophylaxis as well as seen by physical therapy postoperative day #1. Throughout her hospital course her calves remained supple nontender her abdomen remained soft and nontender as well. On postop day #3 she was deemed safe for home discharge. Her discharge instructions were to change her dressing once марина ly till there is no drainage. Once there is no drainage she may shower. She is not to lift anything heavier than 5 to 7 pounds. She is to walk for exercise. She is to be seen in the office approximately 2 weeks out from surgery or sooner if she developed any increased redness around the incision increased drainage or uncontrolled pain.
--- NOTE | 2023-12-24 13:31 | Hospitalist Progress Note ---
Date of Service December 24, 2023 Assessment & Plan (1) S/P spinal surgery: (2) Neurogenic claudication due to lumbar spinal stenosis: Plan: Post op day# 3 S/P removal instrumentation L3-L5 and fusion decompression L3-L5 by Dr Lilo GARSIA#250ml Pain management per ortho Wound management per ortho PT/OT as appropriate DVT prophylaxis per ortho Incentive spirometry Hemoglobin slightly low to 11.2 likely secondary to acute blood loss anemia from surgery/hemodilution Bowel movement since admission. Patient denies abdominal pain, nausea or vomiting. Diet changed to low fiber diet due to the history of small bowel obstruction. Discussed about using low fiber diet even on discharge given the history of a small bowel obstruction (3) Asthma: (4) Chronic obstructive pulmonary disease: Plan: Follows with pulmonology at [facility] No current SOB or wheezing. No signs exacerbation Continue home inhalers, zafirlukast and albuterol nebulizer as needed. On Nucala monthly (5) Atrial fibrillation: Plan: S/P Ablation 2020 Current sinus rhythm per auscultation (6) IBS (irritable bowel syndrome): Plan: Continue amitriptyline (7) Migraine: Plan: History migraine GIPSON Denies current GIPSON Continue amitriptyline DVT Prophylaxis SCDs Disposition per primary service Follows with Dr Horacio Espinosa in [place], [place] for routine care Please note the above document was generated using voice recognition software. It may contain grammatical, syntax or spelling errors. Any formal questions or concerns about the content, text or information contained within the body of this dictation should be directly addressed to the provider for clarification Admission and Anticipated Discharge Date Admission Date: December 21, 2023 Subjective Patient seen and examined at bedside Reports multiple bowel movements overnight Vital signs stable; not in distress Review of Systems Review of Systems: All systems reviewed & are unremarkable except as noted in Subjective Physical Exam Physical Exam: General: no distress, WDWN Lungs: clear, no respiratory distress, no wheezing/rhonchi/rales CV: RRR, no murmur, no pretibial edema Abd: normal BS, soft, non-tender Back: surgical dressing in place, Ext: no cyanosis, no calf tenderness, pedal pushes and pulls intact bilaterally, sensation to light touch intact Neuro: A&O x 3, no focal deficits noted, normal affect Skin: warm, dry Results & Data Results & Data Vital Signs (Past 12 Hours) Vital Signs Temp Pulse Pulse Resp BP BP Pulse Ox 12/24/23 10:43 36.7 C 66 66 16 108/63 134/78 96 12/24/23 08:00 12/24/23 07:15 36.7 C 66 16 134/78 66 L O2 Del Method 12/24/23 10:43 12/24/23 08:00 Room Air 12/24/23 07:15 Room Air
== END 2023-12-24 13:15 | disposition home or self-care (01) | DRG 455 ==
LOC: ASU 08:55 → 3N 12:19